=== PATIENT | male | born 1965 | race African-American/Black ===

== ENCOUNTER 2017-04-13 09:35 | Emergency (ER) | payer OTHER ==
[~2017-04-13] VITALS: Ht 175.3 cm; Wt 85.0 kg
[~2017-04-13 09:35] MED LIST: ALBU8HFA IH; ALLO100T PO; ASPI-556 PO; CALC667C4 PO; CARI350T PO; FOLI1CAP2 PO; IPRA0.2S54 IH; OXYC10 PO; PANT40TA PO
[2017-04-13] MEDS ORDERED: HYDROCODONE/ACETAMINOPHEN 5-325 MG TABLET PO ONE (12:15)
[2017-04-13] MEDS ORDERED: POVIDONE-IODINE 10% 15 ML SOLUTION UD TP ONE (12:15)
[2017-04-13] MEDS ORDERED: LIDOCAINE HCL BUFFERED 1% 20 ML VIAL INJ ONE (12:15)
[2017-04-13 12:50] VITALS: BP 122/75
[2017-04-13] MEDS ORDERED: BACITRACIN 0.9 GM PACKET OINTMENT TP ONE (13:00)
== END 2017-04-13 13:20 | disposition home or self-care (01) ==
LOC: EMS 09:37
DX: S61.411A Laceration without foreign body of right hand, initial encounter (principal); S89.91XA Unspecified injury of right lower leg, initial encounter; I11.0 Hypertensive heart disease with heart failure; I50.9 Heart failure, unspecified; J44.9 Chronic obstructive pulmonary disease, unspecified; J45.909 Unspecified asthma, uncomplicated; F14.90 Cocaine use, unspecified, uncomplicated; F12.90 Cannabis use, unspecified, uncomplicated; F17.210 Nicotine dependence, cigarettes, uncomplicated; Z88.8 Allergy status to other drugs, medicaments and biological substances; W26.0XXA Contact with knife, initial encounter; Y93.89 Activity, other specified; Y92.89 Other specified places as the place of occurrence of the external cause; Y99.8 Other external cause status
CPT/HCPCS: 12004; 72170; 73130; 73562; 99284; J3490

== ENCOUNTER 2017-04-14 17:15 | Emergency (ER) | payer OTHER ==
[~2017-04-14] VITALS: Ht 175.3 cm; Wt 84.7 kg
[2017-04-14] MEDS ORDERED: HYDROCODONE/ACETAMINOPHEN 5-325 MG TABLET PO ONE (18:15)
[2017-04-14 19:01] VITALS: BP 138/83
== END 2017-04-14 19:09 | disposition home or self-care (01) ==
LOC: EMS 17:17
DX: S61.212D Laceration without foreign body of right middle finger without damage to nail, subsequent encounter (principal); X58.XXXD Exposure to other specified factors, subsequent encounter; Z88.0 Allergy status to penicillin; Z79.82 Long term (current) use of aspirin; J45.909 Unspecified asthma, uncomplicated; J44.9 Chronic obstructive pulmonary disease, unspecified; I12.9 Hypertensive chronic kidney disease with stage 1 through stage 4 chronic kidney disease, or unspecified chronic kidney disease; N28.9 Disorder of kidney and ureter, unspecified; Z99.2 Dependence on renal dialysis; B19.20 Unspecified viral hepatitis C without hepatic coma; F17.210 Nicotine dependence, cigarettes, uncomplicated; F14.90 Cocaine use, unspecified, uncomplicated; F12.90 Cannabis use, unspecified, uncomplicated
CPT/HCPCS: 99283

== ENCOUNTER 2017-06-12 09:53 | Emergency (ER) | payer OTHER ==
[~2017-06-12] VITALS: Ht 175.3 cm; Wt 84.0 kg
[2017-06-12 11:42] VITALS: BP 136/84
== END 2017-06-12 12:11 | disposition home or self-care (01) ==
LOC: EMS 09:55
DX: S50.362A Insect bite (nonvenomous) of left elbow, initial encounter (principal); S80.862A Insect bite (nonvenomous), left lower leg, initial encounter; S20.162A Insect bite (nonvenomous) of breast, left breast, initial encounter; L03.116 Cellulitis of left lower limb; L03.114 Cellulitis of left upper limb; I11.0 Hypertensive heart disease with heart failure; I50.9 Heart failure, unspecified; J44.9 Chronic obstructive pulmonary disease, unspecified; F17.210 Nicotine dependence, cigarettes, uncomplicated; F12.90 Cannabis use, unspecified, uncomplicated; F14.90 Cocaine use, unspecified, uncomplicated; Z88.8 Allergy status to other drugs, medicaments and biological substances; W57.XXXA Bitten or stung by nonvenomous insect and other nonvenomous arthropods, initial encounter; Y93.89 Activity, other specified; Y92.098 Other place in other non-institutional residence as the place of occurrence of the external cause; Y99.8 Other external cause status
CPT/HCPCS: 71020; 99284

== ENCOUNTER 2017-08-17 01:53 | Emergency (ER) | payer OTHER ==
[~2017-08-17] VITALS: Ht 180.3 cm; Wt 81.8 kg
[2017-08-17 02:29] LABS: BASOPHILS % (AUTO) 0.3 % (0.0-2.0); EOSINOPHILS % (AUTO) 1.2 % (1.0-6.0); HEMATOCRIT 37.1 % (41-53); HEMOGLOBIN 12.4 g/dL (13.5-17.5); LYMPHOCYTES % (AUTO) 19.6 % (22.0-44.0); MEAN CORPUSCULAR HEMOGLOBIN 35.3 pg (26.0-34.0); MEAN CORPUSCULAR HGB CONC 33.4 G/dL (31.0-37.0); MEAN CORPUSCULAR VOLUME 106 fL (80-100); MONOCYTES # (AUTO) 0.5 K/uL (0.1-1.0); MONOCYTES % (AUTO) 9.1 % (2.0-9.0); NEUTROPHILS # (AUTO) 3.6 K/uL (1.8-7.7); NEUTROPHILS % (AUTO) 69.8 % (40.0-70.0); RED CELL DISTRIBUTION WIDTH 13.9 % (11.5-14.5); WHITE BLOOD COUNT (AUTO) 5.1 K/uL (4.5-11.0)
[2017-08-17 02:48] LABS: CALCIUM, TOTAL 9.3 mg/dL (8.8-10.5); CREATININE 11.89 mg/dL (0.60-1.30); POTASSIUM 5.3 mmol/L (3.5-5.1)
[2017-08-17 02:57] LABS: ALBUMIN 3.9 g/dL (3.4-5.0); BILIRUBIN,TOTAL 1.2 mg/dL (0.1-1.0); TOTAL PROTEIN, SERUM 8.4 g/dL (6.4-8.2)
[2017-08-17 03:00] LABS: PLATELET COUNT (AUTO) 104 K/uL (150-450)
[2017-08-17 03:01] LABS: RBC MORPHOLOGY COMMENT ABNORMAL RBC MORPH
[2017-08-17 04:05] VITALS: BP 110/71
[2017-08-17] MEDS ORDERED: IPRATROPIUM BROMIDE 0.5 MG/2.5 ML NEB SOLUTION NEB ONE (04:45)
[2017-08-17] MEDS ORDERED: ALBUTEROL SULFATE 5 MG/ML 20 ML NEB SOLN [BULK] NEB ONE (04:45)
[2017-08-17] MEDS ORDERED: PROMETHAZINE HCL/CODEINE 6.25-10MG/5ML SYRUP UDCUP PO ONE (04:45)
== END 2017-08-17 05:02 | disposition left against medical advice (07) ==
LOC: EMS 01:54
DX: J44.9 Chronic obstructive pulmonary disease, unspecified (principal); I13.2 Hypertensive heart and chronic kidney disease with heart failure and with stage 5 chronic kidney disease, or end stage renal disease; N18.6 End stage renal disease; I50.9 Heart failure, unspecified; J45.909 Unspecified asthma, uncomplicated; F17.210 Nicotine dependence, cigarettes, uncomplicated; F12.90 Cannabis use, unspecified, uncomplicated; F14.90 Cocaine use, unspecified, uncomplicated; Z99.2 Dependence on renal dialysis; Z88.8 Allergy status to other drugs, medicaments and biological substances; Z79.82 Long term (current) use of aspirin
CPT/HCPCS: 93005; 99285

== ENCOUNTER 2018-04-02 14:09 | Emergency (ER) | payer OTHER ==
[~2018-04-02] VITALS: Ht 177.8 cm; Wt 72.7 kg
[2018-04-02] MEDS ORDERED: OXYC10IR PO (15:25)
[2018-04-02] MEDS ORDERED: KETOROLAC TROMETHAMINE 30 MG/ML VIAL IM ONE ×2 (15:30→15:45)
[2018-04-02] MEDS ORDERED: KETOROLAC TROMETHAMINE 60 MG/2 ML VIAL IM ONE (15:30)
[2018-04-02] MEDS ORDERED: ALBUTEROL SULFATE HFA 90 MCG/PUFF 8 GM INHALER IH ONE (15:30)
[2018-04-02 17:15] VITALS: BP 129/76
== END 2018-04-02 17:31 | disposition home or self-care (01) ==
LOC: EMS 14:12
DX: M79.672 Pain in left foot (principal); I13.2 Hypertensive heart and chronic kidney disease with heart failure and with stage 5 chronic kidney disease, or end stage renal disease; N18.6 End stage renal disease; I50.9 Heart failure, unspecified; J45.909 Unspecified asthma, uncomplicated; J44.9 Chronic obstructive pulmonary disease, unspecified; F17.210 Nicotine dependence, cigarettes, uncomplicated; F12.90 Cannabis use, unspecified, uncomplicated; F14.90 Cocaine use, unspecified, uncomplicated; Z99.2 Dependence on renal dialysis; Z88.8 Allergy status to other drugs, medicaments and biological substances
CPT/HCPCS: 73630; 94640; 96372; 99284; 99406; J1885; J3535

== ENCOUNTER 2019-01-20 12:01 | Inpatient (IN) | payer MEDICAID, OTHER ==
[~2019-01-20] VITALS: Ht 175.3 cm; Wt 75.0 kg
[~2019-01-20 12:01] MED LIST changes: +LIDOCAINE/PF 2% 5 ML VIAL INJ ONE; +MANNITOL 25%-12.5 GM/50 ML VIAL IVP ONE; -OXYC10 PO; +OXYC10IR PO
[2019-01-20] MEDS ORDERED: MethylPREDNISolone SOD SUCC 125 MG/2 ML VIAL IVP ONE (12:45)
[2019-01-20] MEDS ORDERED: LOPERAMIDE HCL 2 MG CAPSULE PO ONE (12:45)
[2019-01-20] MEDS ORDERED: SODIUM CHLORIDE 0.9% 500 ML IV ONE (12:45)
[2019-01-20] MEDS ORDERED: ALBUTEROL SULFATE 5 MG/ML 20 ML NEB SOLN [BULK] NEB ONE (12:45)
[2019-01-20] MEDS ORDERED: IPRATROPIUM BROMIDE 0.5 MG/2.5 ML NEB SOLUTION NEB ONE (12:45)
[2019-01-20] MEDS ORDERED: IBUPROFEN 600 MG TABLET PO ONE (12:45)
[2019-01-20 12:52] LABS: BASOPHILS % (AUTO) 0.4 % (0.0-2.0); EOSINOPHILS % (AUTO) 0.2 % (1.0-6.0); HEMATOCRIT 43.6 % (41-53); HEMOGLOBIN 14.6 g/dL (13.5-17.5); LYMPHOCYTES # (AUTO) 0.5 K/uL (1.0-4.8); LYMPHOCYTES % (AUTO) 10.2 % (22.0-44.0); MEAN CORPUSCULAR HEMOGLOBIN 35.1 pg (26.0-34.0); MEAN CORPUSCULAR HGB CONC 33.4 G/dL (31.0-37.0); MEAN CORPUSCULAR VOLUME 105 fL (80-100); MONOCYTES # (AUTO) 0.7 K/uL (0.1-1.0); MONOCYTES % (AUTO) 12.9 % (2.0-9.0); NEUTROPHILS % (AUTO) 76.3 % (40.0-70.0); RED BLOOD CELL COUNT(AUTO) 4.15 MIL/uL (4.50-5.90); RED CELL DISTRIBUTION WIDTH 14.4 % (11.5-14.5)
[2019-01-20 13:10] LABS: ALBUMIN 3.4 g/dL (3.4-5.0); BILIRUBIN,TOTAL 1.5 mg/dL (0.1-1.0); CALCIUM, TOTAL 9.2 mg/dL (8.8-10.5); CREATININE 12.41 mg/dL (0.60-1.30); TOTAL PROTEIN, SERUM 8.2 g/dL (6.4-8.2)
[2019-01-20 13:20] LABS: POTASSIUM 6.3 mmol/L (3.5-5.1)
[2019-01-20 13:22] LABS: PLATELET COUNT (AUTO) 97 K/uL (150-450)
[2019-01-20] MEDS ORDERED: DEXTROSE 50%-WATER 25 GM/50 ML SYRINGE IVP ONE (13:30)
[2019-01-20] MEDS ORDERED: OSELTAMIVIR PHOSPHATE 75 MG CAPSULE PO ONE (13:30)
[2019-01-20] MEDS ORDERED: CALCIUM GLUCONATE 100 MG/ML 10 ML IVP ONE (13:30)
[2019-01-20] MEDS ORDERED: SODIUM BICARBONATE [ADULT] 8.4% 50 MEQ/50 ML SYRINGE IVP ONE (13:30)
[2019-01-20] MEDS ORDERED: SODIUM POLYSTYRENE SULFONATE 15 GM/60 ML SUSPENSION BOTTLE PO ONE (13:30)
[2019-01-20] MEDS ORDERED: INSULIN REGULAR, HUMAN 100 UNITS/ML IVP ONE (13:30)
[2019-01-20] MEDS ORDERED: ACETAMINOPHEN 325 MG TABLET PO PRN ×2 (13:45→17:45)
[2019-01-20] MEDS ORDERED: ONDANSETRON HCL 4 MG/2 ML VIAL IVP PRN ×2 (13:45→17:45)
[2019-01-20 14:38] LABS: INFLUENZA TYPE A POSITIVE FOR TYPE A (NEGATIVE); INFLUENZA TYPE B NEGATIVE FOR TYPE B (NEGATIVE)
[2019-01-20 14:45] VITALS: BP 110/63
[2019-01-20] MEDS: IPRATROPIUM BROMIDE 0.5 MG/2.5 ML NEB SOLUTION NEB SCH ×5 (15:00→19:59)
[2019-01-20] MEDS: ALBUTEROL SULFATE 2.5 MG/0.5 ML NEB SOLUTION NEB SCH ×5 (15:00→19:59)
[2019-01-20] MEDS ORDERED: SODIUM CHLORIDE 0.9% 2,000 ML IV ONE (17:21)
[2019-01-20] MEDS ORDERED: ZOLPIDEM TARTRATE 5 MG TABLET PO PRN (17:45)
[2019-01-20] MEDS ORDERED: BISACODYL 10 MG RECTAL RECTAL SUPPOSITORY PR PRN (17:45)
[2019-01-20] MEDS ORDERED: MORPHINE SULFATE 2 MG/ML SYRINGE IVP PRN (17:45)
[2019-01-20] MEDS ORDERED: IPRATROPIUM BROMIDE 0.5 MG/2.5 ML NEB SOLUTION NEB PRN (17:45)
[2019-01-20] MEDS ORDERED: ALBUTEROL SULFATE 2.5 MG/0.5 ML NEB SOLUTION NEB PRN (17:45)
[2019-01-20] MEDS ORDERED: MAGNESIUM HYDROXIDE SUSPENSION 30 ML UDCUP PO PRN (17:45)
[2019-01-20] MEDS: MethylPREDNISolone SOD SUCC 125 MG/2 ML VIAL IVP SCH (18:00)
[2019-01-20] MEDS: CALCIUM ACETATE 667 MG CAPSULE PO SCH (18:02)
[2019-01-20] MEDS: HYDROCODONE/ACETAMINOPHEN 5-325 MG TABLET PO PRN ×2 (18:05→22:46)
[2019-01-20] MEDS ORDERED: MANNITOL 25%-12.5 GM/50 ML VIAL IVP PRN (19:15)
[2019-01-20] MEDS ORDERED: LIDOCAINE/PF 1% 2 ML VIAL ID PRN (19:15)
[2019-01-20] MEDS ORDERED: SODIUM CHLORIDE 0.9% 250 ML IV ONE (20:48)
[2019-01-20] MEDS: DOCUSATE SODIUM 100 MG CAPSULE PO SCH ×2 (21:00→22:23)
[2019-01-20] MEDS: GuaiFENesin SR 600 MG ER TABLET PO SCH (22:23)
[2019-01-20] MEDS: BENZONATATE 100 MG CAPSULE PO SCH (22:26)
[2019-01-20] MEDS: CefTRIAXone 1 GM/DEXTROSE 50 ML IV SCH (22:26)
[2019-01-20] MEDS: OSELTAMIVIR PHOSPHATE 75 MG CAPSULE PO SCH (22:26)
[2019-01-20] MEDS: AZITHROMYCIN 500 MG/NS 250 ML IV SCH (23:37)
[2019-01-20] MEDS: HEPARIN SODIUM,PORCINE 5,000 UNITS/ML VIAL SQ SCH (23:37)
[2019-01-21 00:18] VITALS: BP 112/65
[2019-01-21] MEDS: IPRATROPIUM BROMIDE 0.5 MG/2.5 ML NEB SOLUTION NEB SCH ×4 (02:41→21:38)
[2019-01-21] MEDS: ALBUTEROL SULFATE 2.5 MG/0.5 ML NEB SOLUTION NEB SCH ×4 (02:41→21:38)
[2019-01-21 04:40] VITALS: BP 99/63
[2019-01-21] MEDS ORDERED: MANNITOL 25%-12.5 GM/50 ML VIAL IVP PRN (06:00)
[2019-01-21] MEDS: MethylPREDNISolone SOD SUCC 125 MG/2 ML VIAL IVP SCH ×4 (06:00→17:20)
[2019-01-21] MEDS ORDERED: LIDOCAINE/PF 1% 2 ML VIAL ID PRN (06:00)
[2019-01-21 06:59] LABS: BASOPHILS % (AUTO) 0.2 % (0.0-2.0); EOSINOPHILS % (AUTO) 0 % (1.0-6.0); HEMATOCRIT 38.6 % (41-53); LYMPHOCYTES # (AUTO) 0.3 K/uL (1.0-4.8); MEAN CORPUSCULAR HEMOGLOBIN 35.1 pg (26.0-34.0); MEAN CORPUSCULAR HGB CONC 33.6 G/dL (31.0-37.0); MEAN CORPUSCULAR VOLUME 105 fL (80-100); MONOCYTES # (AUTO) 0.4 K/uL (0.1-1.0); MONOCYTES % (AUTO) 7.2 % (2.0-9.0); PLATELET COUNT (AUTO) 82 K/uL (150-450); RED BLOOD CELL COUNT(AUTO) 3.69 MIL/uL (4.50-5.90)
[2019-01-21 07:05] LABS: CALCIUM, TOTAL 8.7 mg/dL (8.8-10.5); CREATININE 7.68 mg/dL (0.60-1.30); MAGNESIUM 2.1 mg/dL (1.80-2.40); NEUTROPHILS % (AUTO) 87.6 % (40.0-70.0); PHOSPHORUS 6.6 mg/dL (2.5-4.9)
[2019-01-21 07:42] VITALS: BP 110/74
[2019-01-21] MEDS: HEPARIN SODIUM,PORCINE 5,000 UNITS/ML VIAL SQ SCH (08:00)
[2019-01-21] MEDS ORDERED: SODIUM CHLORIDE 0.9% 2,000 ML IV ONE (08:16)
[2019-01-21] MEDS: ASPIRIN 81 MG EC TABLET PO SCH (08:20)
[2019-01-21] MEDS: DOCUSATE SODIUM 100 MG CAPSULE PO SCH ×2 (08:20→21:06)
[2019-01-21] MEDS: PANTOPRAZOLE SODIUM 40 MG DR TABLET PO SCH (08:20)
[2019-01-21] MEDS: GuaiFENesin SR 600 MG ER TABLET PO SCH ×2 (08:20→21:01)
[2019-01-21] MEDS: CALCIUM ACETATE 667 MG CAPSULE PO SCH ×3 (08:20→18:09)
[2019-01-21] MEDS: OSELTAMIVIR PHOSPHATE 75 MG CAPSULE PO SCH ×2 (08:21→21:01)
[2019-01-21] MEDS: ALLOPURINOL 100 MG TABLET PO SCH (08:21)
[2019-01-21] MEDS: BENZONATATE 100 MG CAPSULE PO SCH ×3 (08:21→21:01)
[2019-01-21] MEDS: HYDROCODONE/ACETAMINOPHEN 5-325 MG TABLET PO PRN ×2 (08:28→21:06)
[2019-01-21 11:04] VITALS: BP 119/79
[2019-01-21] MEDS: VITAMIN B COMP/VIT C/FOLIC ACID CAPSULE PO SCH (12:24)
[2019-01-21 15:12] VITALS: BP 112/72
[2019-01-21 19:52] VITALS: BP 111/77
[2019-01-21] MEDS: CefTRIAXone 1 GM/DEXTROSE 50 ML IV SCH (21:02)
[2019-01-21] MEDS: AZITHROMYCIN 500 MG/NS 250 ML IV SCH (22:06)
[2019-01-22 00:12] VITALS: BP 98/71
[2019-01-22] MEDS: IPRATROPIUM BROMIDE 0.5 MG/2.5 ML NEB SOLUTION NEB SCH ×3 (01:59→14:59)
[2019-01-22] MEDS: ALBUTEROL SULFATE 2.5 MG/0.5 ML NEB SOLUTION NEB SCH ×3 (02:00→14:59)
[2019-01-22 04:27] VITALS: BP 118/74
[2019-01-22] MEDS: MethylPREDNISolone SOD SUCC 125 MG/2 ML VIAL IVP SCH ×3 (06:00→12:00)
[2019-01-22 07:09] VITALS: BP 119/51
[2019-01-22 07:30] VITALS: BP 111/77
[2019-01-22] MEDS: BENZONATATE 100 MG CAPSULE PO SCH ×2 (08:39→16:24)
[2019-01-22] MEDS: DOCUSATE SODIUM 100 MG CAPSULE PO SCH (08:40)
[2019-01-22] MEDS: CALCIUM ACETATE 667 MG CAPSULE PO SCH ×2 (08:40→13:46)
[2019-01-22] MEDS: GuaiFENesin SR 600 MG ER TABLET PO SCH (08:40)
[2019-01-22] MEDS: ASPIRIN 81 MG EC TABLET PO SCH (08:40)
[2019-01-22] MEDS: ALLOPURINOL 100 MG TABLET PO SCH (08:41)
[2019-01-22] MEDS: VITAMIN B COMP/VIT C/FOLIC ACID CAPSULE PO SCH (08:41)
[2019-01-22] MEDS: PANTOPRAZOLE SODIUM 40 MG DR TABLET PO SCH (08:41)
[2019-01-22] MEDS: OSELTAMIVIR PHOSPHATE 75 MG CAPSULE PO SCH (08:41)
[2019-01-22] MEDS: HYDROCODONE/ACETAMINOPHEN 5-325 MG TABLET PO PRN ×2 (08:46→16:25)
[2019-01-22 11:15] VITALS: BP 115/76
[2019-01-22] MEDS ORDERED: OxyCODONE HCL 10 MG IR TABLET PO PRN (13:00)
[2019-01-22 15:40] VITALS: BP 134/75
[2019-01-22] MEDS ORDERED: AZIT250T9 PO (16:58)
[2019-01-22] MEDS ORDERED: BENZ-51 PO (16:59)
[2019-01-22] MEDS ORDERED: OSEL75 PO (17:01)
[2019-01-22] MEDS ORDERED: PRED20 PO ×2 (17:03→17:05)
[2019-01-22] MEDS ORDERED: PRED10 PO (17:06)
== END 2019-01-22 17:20 | disposition home or self-care (01) | DRG 194 ==
LOC: EMS 12:03 → 5S 13:48
PROVIDERS: ADMIT Internal Medicine; ATTEND Internal Medicine
PROC: 5A1D70Z Performance of Urinary Filtration, Intermittent, Less than 6 Hours Per Day (ICD-10-PCS; principal; 2019-01-20)
PROC: 5A1D70Z Performance of Urinary Filtration, Intermittent, Less than 6 Hours Per Day (ICD-10-PCS; 2019-01-21)
DX: I13.2 Hypertensive heart and chronic kidney disease with heart failure and with stage 5 chronic kidney disease, or end stage renal disease (principal); J96.00 Acute respiratory failure, unspecified whether with hypoxia or hypercapnia; J10.00 Influenza due to other identified influenza virus with unspecified type of pneumonia; E11.22 Type 2 diabetes mellitus with diabetic chronic kidney disease; J44.0 Chronic obstructive pulmonary disease with (acute) lower respiratory infection; N18.6 End stage renal disease; J45.901 Unspecified asthma with (acute) exacerbation; E87.5 Hyperkalemia; I42.9 Cardiomyopathy, unspecified; I50.31 Acute diastolic (congestive) heart failure; Z99.2 Dependence on renal dialysis; E55.9 Vitamin D deficiency, unspecified; E87.6 Hypokalemia; I34.0 Nonrheumatic mitral (valve) insufficiency; J44.1 Chronic obstructive pulmonary disease with (acute) exacerbation; N26.9 Renal sclerosis, unspecified; Z79.82 Long term (current) use of aspirin; Z79.899 Other long term (current) drug therapy; Z87.891 Personal history of nicotine dependence
CPT/HCPCS: 83036; 83735; 84100; 86704; 86706; 87081; 87340; 87804; 93005; 94640; 94644; 96374; 96375; 99291; G0378; J0456; J0610; J0696; J1644; J1815; J2150; J2405; J2930; J3490; J7030; J7040; J7050

== ENCOUNTER 2019-03-02 02:35 | Emergency (ER) | payer OTHER ==
[~2019-03-02] VITALS: Ht 177.8 cm; Wt 80.5 kg
[~2019-03-02 02:35] MED LIST changes: +AZIT250T9 PO; +BENZ-51 PO; -LIDOCAINE/PF 2% 5 ML VIAL INJ ONE; -MANNITOL 25%-12.5 GM/50 ML VIAL IVP ONE; +OSEL75 PO; +PRED10 PO; +PRED20 PO
[2019-03-02] MEDS ORDERED: CARISOPRODOL 350 MG TABLET PO ONE (03:30)
[2019-03-02] MEDS ORDERED: HYDROCODONE/ACETAMINOPHEN 5-325 MG TABLET PO ONE (03:30)
[2019-03-02] MEDS ORDERED: KETOROLAC TROMETHAMINE 60 MG/2 ML VIAL IM ONE (03:45)
[2019-03-02] MEDS ORDERED: KETOROLAC TROMETHAMINE 30 MG/ML VIAL IM ONE (04:00)
[2019-03-02 04:24] VITALS: BP 110/72
== END 2019-03-02 04:30 | disposition home or self-care (01) ==
LOC: EMS 02:39
DX: M16.0 Bilateral primary osteoarthritis of hip (principal); I11.0 Hypertensive heart disease with heart failure; I50.9 Heart failure, unspecified; J44.9 Chronic obstructive pulmonary disease, unspecified; F12.90 Cannabis use, unspecified, uncomplicated; F14.90 Cocaine use, unspecified, uncomplicated; F17.210 Nicotine dependence, cigarettes, uncomplicated; Z79.899 Other long term (current) drug therapy; Z88.8 Allergy status to other drugs, medicaments and biological substances; Z79.82 Long term (current) use of aspirin; W18.39XA Other fall on same level, initial encounter; Y93.89 Activity, other specified; Y92.89 Other specified places as the place of occurrence of the external cause; Y99.8 Other external cause status
CPT/HCPCS: 73503; 96372; 99283; J1885

== ENCOUNTER 2019-05-24 11:36 | Emergency (ER) | payer OTHER ==
[~2019-05-24] VITALS: Ht 175.3 cm; Wt 76.0 kg
[2019-05-24] MEDS ORDERED: SEVE800 PO (12:15)
[2019-05-24] MEDS ORDERED: FOLI1CAP16 PO (12:15)
[2019-05-24] MEDS ORDERED: HYDR25TA84 PO (12:15)
[2019-05-24] MEDS ORDERED: GABA-529 PO (12:15)
[2019-05-24] MEDS ORDERED: CARV6 PO (12:15)
[2019-05-24] MEDS ORDERED: LOSA25TA41 PO (12:15)
[2019-05-24] MEDS ORDERED: FURO40I IM (12:15)
[2019-05-24] MEDS ORDERED: OXYC10IR PO (12:15)
[2019-05-24 13:15] LABS: BASOPHILS % (AUTO) 0.7 % (0.0-2.0); EOSINOPHILS % (AUTO) 1.6 % (1.0-6.0); HEMATOCRIT 49.3 % (41-53); HEMOGLOBIN 16.1 g/dL (13.5-17.5); LYMPHOCYTES # (AUTO) 1.1 K/uL (1.0-4.8); LYMPHOCYTES % (AUTO) 23.6 % (22.0-44.0); MEAN CORPUSCULAR HEMOGLOBIN 35.3 pg (26.0-34.0); MEAN CORPUSCULAR HGB CONC 32.8 G/dL (31.0-37.0); MEAN CORPUSCULAR VOLUME 108 fL (80-100); MONOCYTES # (AUTO) 0.4 K/uL (0.1-1.0); MONOCYTES % (AUTO) 9.3 % (2.0-9.0); NEUTROPHILS % (AUTO) 64.8 % (40.0-70.0); PLATELET COUNT (AUTO) 109 K/uL (150-450); RED BLOOD CELL COUNT(AUTO) 4.57 MIL/uL (4.50-5.90); RED CELL DISTRIBUTION WIDTH 14.5 % (11.5-14.5)
[2019-05-24 13:21] LABS: CALCIUM, TOTAL 7.9 mg/dL (8.8-10.5); CREATININE 7.02 mg/dL (0.60-1.30); POTASSIUM 4.1 mmol/L (3.5-5.1)
[2019-05-24 13:26] LABS: ALBUMIN 3.4 g/dL (3.4-5.0); BILIRUBIN,TOTAL 0.9 mg/dL (0.1-1.0); TOTAL PROTEIN, SERUM 7.9 g/dL (6.4-8.2)
[2019-05-24 15:01] VITALS: BP 131/86
== END 2019-05-24 15:01 | disposition home or self-care (01) ==
LOC: EMS 11:38
DX: K62.5 Hemorrhage of anus and rectum (principal); K59.00 Constipation, unspecified; I13.2 Hypertensive heart and chronic kidney disease with heart failure and with stage 5 chronic kidney disease, or end stage renal disease; N18.6 End stage renal disease; I50.9 Heart failure, unspecified; J45.909 Unspecified asthma, uncomplicated; F17.210 Nicotine dependence, cigarettes, uncomplicated; F12.90 Cannabis use, unspecified, uncomplicated; F14.90 Cocaine use, unspecified, uncomplicated; Z99.2 Dependence on renal dialysis; Z79.82 Long term (current) use of aspirin; Z79.899 Other long term (current) drug therapy; Z88.8 Allergy status to other drugs, medicaments and biological substances
CPT/HCPCS: 93005

== ENCOUNTER 2019-08-01 20:14 | Emergency (ER) | payer OTHER ==
[~2019-08-01] VITALS: Ht 175.3 cm; Wt 82.7 kg
[~2019-08-01 20:14] MED LIST changes: -ALLO100T PO; -AZIT250T9 PO; -BENZ-51 PO; +CARV6.2579 PO; +FOLI1CAP16 PO; -FOLI1CAP2 PO; -IPRA0.2S54 IH; +LOSA25TA2 PO; -OSEL75 PO; -OXYC10IR PO; -PRED10 PO; -PRED20 PO; +SEVE800 PO
[2019-08-01] MEDS ORDERED: ALLO100T PO (20:47)
[2019-08-01] MEDS ORDERED: ACETAMINOPHEN 500 MG TABLET PO ONE (22:00)
[2019-08-01] MEDS ORDERED: LIDOCAINE 5% TRANSDERMAL PATCH TD ONE (22:00)
[2019-08-02 00:46] VITALS: BP 141/80
== END 2019-08-02 00:50 | disposition home or self-care (01) ==
LOC: EMS 20:16
DX: S76.011A Strain of muscle, fascia and tendon of right hip, initial encounter (principal); M70.61 Trochanteric bursitis, right hip; J45.909 Unspecified asthma, uncomplicated; I11.0 Hypertensive heart disease with heart failure; I50.9 Heart failure, unspecified; F17.210 Nicotine dependence, cigarettes, uncomplicated; Z79.82 Long term (current) use of aspirin; Z88.8 Allergy status to other drugs, medicaments and biological substances; X58.XXXA Exposure to other specified factors, initial encounter; Y93.89 Activity, other specified; Y92.89 Other specified places as the place of occurrence of the external cause; Y99.8 Other external cause status
CPT/HCPCS: 73502; 99406

== ENCOUNTER 2019-08-30 09:28 | Emergency (ER) | payer OTHER ==
[~2019-08-30] VITALS: Ht 175.3 cm; Wt 81.8 kg
[~2019-08-30 09:28] MED LIST changes: +ALLO100T PO
[2019-08-30] MEDS ORDERED: LIDOCAINE 1%/EPI 1:200,000/PF 10 ML VIAL INJ ONE (10:15)
[2019-08-30] MEDS ORDERED: CEPHALEXIN MONOHYDRATE 500 MG CAPSULE PO ONE (10:15)
[2019-08-30] MEDS ORDERED: SULFAMETHOX/TRIMETH DS 800-160 MG/TABLET PO ONE (10:15)
[2019-08-30 12:32] VITALS: BP 130/78
== END 2019-08-30 12:34 | disposition home or self-care (01) ==
LOC: EMS 09:30
DX: L02.31 Cutaneous abscess of buttock (principal); G93.49 Other encephalopathy; I11.0 Hypertensive heart disease with heart failure; I50.9 Heart failure, unspecified; J44.9 Chronic obstructive pulmonary disease, unspecified; F12.90 Cannabis use, unspecified, uncomplicated; F17.210 Nicotine dependence, cigarettes, uncomplicated; Z99.2 Dependence on renal dialysis; Z86.19 Personal history of other infectious and parasitic diseases; Z98.890 Other specified postprocedural states; Z88.8 Allergy status to other drugs, medicaments and biological substances
CPT/HCPCS: 10060; 73630; 99284; J3490; 29515

== ENCOUNTER 2019-11-16 12:12 | Inpatient (IN) | payer OTHER ==
[~2019-11-16] VITALS: Ht 175.3 cm; Wt 79.9 kg
[~2019-11-16 12:12] MED LIST changes: -ASPI-556 PO; -CALC667C4 PO; -CARV6.2579 PO; +CEPH500 PO; -LOSA25TA2 PO; +PHOSLOC PO
[2019-11-16] MEDS ORDERED: LOPERAMIDE HCL 2 MG CAPSULE PO ONE (14:45)
[2019-11-16] MEDS ORDERED: ONDANSETRON HCL 4 MG TABLET PO ONE (14:45)
[2019-11-16] MEDS ORDERED: ACETAMINOPHEN 500 MG TABLET PO ONE (14:45)
[2019-11-16 16:00] LABS: BASOPHILS % (AUTO) 0.7 % (0.0-2.0); EOSINOPHILS % (AUTO) 0.5 % (1.0-6.0); HEMATOCRIT 33.8 % (41-53); HEMOGLOBIN 11.4 g/dL (13.5-17.5); LYMPHOCYTES # (AUTO) 0.5 K/uL (1.0-4.8); LYMPHOCYTES % (AUTO) 8.9 % (22.0-44.0); MEAN CORPUSCULAR HEMOGLOBIN 34.6 pg (26.0-34.0); MEAN CORPUSCULAR HGB CONC 33.6 G/dL (31.0-37.0); MEAN CORPUSCULAR VOLUME 103 fL (80-100); MONOCYTES # (AUTO) 0.7 K/uL (0.1-1.0); NEUTROPHILS # (AUTO) 4.1 K/uL (1.8-7.7); NEUTROPHILS % (AUTO) 76.9 % (40.0-70.0); PLATELET COUNT (AUTO) 134 K/uL (150-450); RED BLOOD CELL COUNT(AUTO) 3.28 MIL/uL (4.50-5.90); RED CELL DISTRIBUTION WIDTH 14.2 % (11.5-14.5)
[2019-11-16 16:27] LABS: ALBUMIN 3.6 g/dL (3.4-5.0); BILIRUBIN,TOTAL 1.7 mg/dL (0.1-1.0); CALCIUM, TOTAL 8.4 mg/dL (8.8-10.5); CREATININE 9.15 mg/dL (0.60-1.30)
[2019-11-16 16:35] LABS: PLATELET MORPHOLOGY COMMENT GIANT PLTS PRESENT; POTASSIUM 6.8 mmol/L (3.5-5.1)
[2019-11-16] MEDS ORDERED: CALCIUM GLUCONATE 100 MG/ML 10 ML IVP ONE (16:45)
[2019-11-16] MEDS ORDERED: INSULIN REGULAR, HUMAN 100 UNITS/ML IVP ONE (16:45)
[2019-11-16] MEDS ORDERED: SODIUM BICARBONATE [ADULT] 8.4% 50 MEQ/50 ML SYRINGE IVP ONE (16:45)
[2019-11-16] MEDS ORDERED: SODIUM POLYSTYRENE SULFONATE 15 GM/60 ML SUSPENSION BOTTLE PO ONE (16:45)
[2019-11-16] MEDS ORDERED: DEXTROSE 50%-WATER 25 GM/50 ML SYRINGE IVP ONE (16:45)
[2019-11-16] MEDS ORDERED: ONDANSETRON HCL 4 MG/2 ML VIAL IVP PRN ×2 (17:00→21:45)
[2019-11-16] MEDS ORDERED: ACETAMINOPHEN 325 MG TABLET PO PRN ×2 (17:00→21:45)
[2019-11-16] MEDS: PANTOPRAZOLE SODIUM 40 MG/VIAL IVP SCH (17:33)
[2019-11-16] MEDS ORDERED: MORPHINE SULFATE 2 MG/ML SYRINGE IVP PRN (21:45)
[2019-11-16] MEDS ORDERED: MAGNESIUM HYDROXIDE SUSPENSION 30 ML UDCUP PO PRN (21:45)
[2019-11-16] MEDS ORDERED: ALBUTEROL SULFATE HFA 90 MCG/PUFF 8 GM INHALER IH PRN (21:45)
[2019-11-16] MEDS ORDERED: ZOLPIDEM TARTRATE 5 MG TABLET PO PRN (21:45)
[2019-11-16] MEDS ORDERED: BISACODYL 10 MG RECTAL RECTAL SUPPOSITORY PR PRN (21:45)
[2019-11-17] MEDS: HEPARIN SODIUM,PORCINE 5,000 UNITS/ML VIAL SQ SCH ×3 (01:16→17:28)
[2019-11-17 03:58] VITALS: BP 105/62
[2019-11-17 06:50] LABS: BASOPHILS % (AUTO) 0.7 % (0.0-2.0); EOSINOPHILS % (AUTO) 0.7 % (1.0-6.0); HEMATOCRIT 30.9 % (41-53); HEMOGLOBIN 10.6 g/dL (13.5-17.5); LYMPHOCYTES # (AUTO) 0.4 K/uL (1.0-4.8); LYMPHOCYTES % (AUTO) 6.4 % (22.0-44.0); MEAN CORPUSCULAR HGB CONC 34.1 G/dL (31.0-37.0); MEAN CORPUSCULAR VOLUME 103 fL (80-100); MONOCYTES # (AUTO) 0.7 K/uL (0.1-1.0); NEUTROPHILS # (AUTO) 4.8 K/uL (1.8-7.7); NEUTROPHILS % (AUTO) 81.2 % (40.0-70.0); PLATELET COUNT (AUTO) 132 K/uL (150-450); RED BLOOD CELL COUNT(AUTO) 3.01 MIL/uL (4.50-5.90); RED CELL DISTRIBUTION WIDTH 14.5 % (11.5-14.5)
[2019-11-17 07:18] LABS: ALBUMIN 3.1 g/dL (3.4-5.0); CALCIUM, TOTAL 8.1 mg/dL (8.8-10.5); CREATININE 6.63 mg/dL (0.60-1.30); MAGNESIUM 1.8 mg/dL (1.80-2.40); PHOSPHORUS 4.3 mg/dL (2.5-4.9); POTASSIUM 4.8 mmol/L (3.5-5.1); TOTAL PROTEIN, SERUM 7.8 g/dL (6.4-8.2)
[2019-11-17 07:34] LABS: BILIRUBIN,TOTAL 1.4 mg/dL (0.1-1.0)
[2019-11-17] MEDS: SEVELAMER CARBONATE 800 MG TABLET PO SCH ×3 (07:55→17:53)
[2019-11-17] MEDS: CALCIUM ACETATE 667 MG CAPSULE PO SCH ×3 (07:55→17:53)
[2019-11-17] MEDS: VITAMIN B COMP/VIT C/FOLIC ACID CAPSULE PO SCH (07:56)
[2019-11-17] MEDS: PANTOPRAZOLE SODIUM 40 MG/VIAL IVP SCH (07:57)
[2019-11-17] MEDS: DOCUSATE SODIUM 100 MG CAPSULE PO SCH ×2 (07:57→21:00)
[2019-11-17] MEDS: ALLOPURINOL 100 MG TABLET PO SCH (07:58)
[2019-11-17] MEDS: PANTOPRAZOLE SODIUM 40 MG DR TABLET PO SCH (07:58)
[2019-11-17] MEDS: CARISOPRODOL 350 MG TABLET PO SCH ×2 (07:59→21:37)
[2019-11-17 08:02] VITALS: BP 116/72
[2019-11-17] MEDS ORDERED: CARISOPRODOL 350 MG TABLET PO SCH (09:00)
[2019-11-17 11:30] VITALS: BP 105/63
[2019-11-17] MEDS ORDERED: IPRATROPIUM BROMIDE 0.5 MG/2.5 ML NEB SOLUTION NEB PRN (14:30)
[2019-11-17] MEDS ORDERED: *CLINICAL-LEVOFLOXACIN IVPB DOSING CLINICAL ONE (14:30)
[2019-11-17] MEDS ORDERED: ALBUTEROL SULFATE 2.5 MG/0.5 ML NEB SOLUTION NEB PRN (14:30)
[2019-11-17 14:59] VITALS: BP 107/65
[2019-11-17] MEDS ORDERED: LEVOFLOXACIN 750 MG/D5% WATER 150 ML IV ONE (15:00)
[2019-11-17] MEDS ORDERED: SODIUM CHLORIDE 0.9% 250 ML IV ONE (17:22)
[2019-11-17] MEDS: HYDROCODONE/ACETAMINOPHEN 5-325 MG TABLET PO PRN (17:29)
[2019-11-17 19:46] VITALS: BP 112/62
[2019-11-18] VITALS: BP 95/55
[2019-11-18] MEDS: HEPARIN SODIUM,PORCINE 5,000 UNITS/ML VIAL SQ SCH ×2 (00:25→08:00)
[2019-11-18] MEDS: HYDROCODONE/ACETAMINOPHEN 5-325 MG TABLET PO PRN ×2 (02:34→09:37)
[2019-11-18 04:08] VITALS: BP 110/65
[2019-11-18 07:06] LABS: CALCIUM, TOTAL 8.5 mg/dL (8.8-10.5); CREATININE 8.46 mg/dL (0.60-1.30); POTASSIUM 4.6 mmol/L (3.5-5.1)
[2019-11-18 07:37] VITALS: BP 112/66
[2019-11-18] MEDS: SEVELAMER CARBONATE 800 MG TABLET PO SCH ×2 (08:00→12:14)
[2019-11-18] MEDS: CALCIUM ACETATE 667 MG CAPSULE PO SCH ×2 (08:00→12:15)
[2019-11-18] MEDS: DOCUSATE SODIUM 100 MG CAPSULE PO SCH (09:00)
[2019-11-18] MEDS ORDERED: LEVO500 PO (10:01)
[2019-11-18] MEDS ORDERED: ALBU8HFA IH (10:01)
[2019-11-18] MEDS ORDERED: GUAIFDM PO (10:01)
[2019-11-18 11:05] VITALS: BP 113/97
[2019-11-18] MEDS: CARISOPRODOL 350 MG TABLET PO SCH (12:14)
[2019-11-18] MEDS: PANTOPRAZOLE SODIUM 40 MG/VIAL IVP SCH (12:14)
[2019-11-18] MEDS: ALLOPURINOL 100 MG TABLET PO SCH (12:15)
[2019-11-18] MEDS: PANTOPRAZOLE SODIUM 40 MG DR TABLET PO SCH (12:15)
[2019-11-18] MEDS: VITAMIN B COMP/VIT C/FOLIC ACID CAPSULE PO SCH (12:15)
[2019-11-18] MEDS ORDERED: LIDOCAINE/PF 1% 2 ML VIAL IV ONE (13:14)
[2019-11-19 08:40] LABS: GLUCOMETER DEV NAME(LOC) AHU.; GLUCOSE,POINT OF CARE 114 MG/DL (70-110)
[2019-11-19] MEDS ORDERED: LEVOFLOXACIN 500 MG/D5% WATER 100 ML IV SCH (13:00)
== END 2019-11-18 13:15 | disposition home or self-care (01) | DRG 194 ==
LOC: EMS 12:14 → AHU 11-17 00:28 → 5N 11-17 11:15
PROVIDERS: ADMIT Internal Medicine; ATTEND Internal Medicine
PROC: 5A1D70Z Performance of Urinary Filtration, Intermittent, Less than 6 Hours Per Day (ICD-10-PCS; principal; 2019-11-18)
DX: I13.2 Hypertensive heart and chronic kidney disease with heart failure and with stage 5 chronic kidney disease, or end stage renal disease (principal); J18.9 Pneumonia, unspecified organism; E11.22 Type 2 diabetes mellitus with diabetic chronic kidney disease; I42.9 Cardiomyopathy, unspecified; N18.6 End stage renal disease; E87.5 Hyperkalemia; J44.1 Chronic obstructive pulmonary disease with (acute) exacerbation; J44.0 Chronic obstructive pulmonary disease with (acute) lower respiratory infection; I50.31 Acute diastolic (congestive) heart failure; D64.9 Anemia, unspecified; M10.9 Gout, unspecified; B19.20 Unspecified viral hepatitis C without hepatic coma; F19.10 Other psychoactive substance abuse, uncomplicated; E55.9 Vitamin D deficiency, unspecified; E21.3 Hyperparathyroidism, unspecified; F17.210 Nicotine dependence, cigarettes, uncomplicated; F12.90 Cannabis use, unspecified, uncomplicated; E20.9 Hypoparathyroidism, unspecified; M19.90 Unspecified osteoarthritis, unspecified site; Z86.19 Personal history of other infectious and parasitic diseases; Z98.890 Other specified postprocedural states; Z79.899 Other long term (current) drug therapy; Z99.2 Dependence on renal dialysis; Z88.8 Allergy status to other drugs, medicaments and biological substances
CPT/HCPCS: 83735; 84100; 87081; 93005; 99291; C9113; J0610; J1644; J1815; J1956; J3490; J7050; Q0162

== ENCOUNTER 2019-12-23 19:35 | Inpatient (IN) | payer OTHER ==
[~2019-12-23] VITALS: Ht 175.3 cm; Wt 79.6 kg
[~2019-12-23 19:35] MED LIST changes: -CEPH500 PO; +GUAIFDM PO; +LEVO-72 PO
[2019-12-23 21:25] LABS: BASOPHILS % (AUTO) 0.6 % (0.0-2.0); EOSINOPHILS % (AUTO) 0.3 % (1.0-6.0); HEMOGLOBIN 11.1 g/dL (13.5-17.5); LYMPHOCYTES # (AUTO) 1.1 K/uL (1.0-4.8); LYMPHOCYTES % (AUTO) 16.2 % (22.0-44.0); MEAN CORPUSCULAR HEMOGLOBIN 35.1 pg (26.0-34.0); MEAN CORPUSCULAR HGB CONC 32.7 G/dL (31.0-37.0); MEAN CORPUSCULAR VOLUME 107 fL (80-100); MONOCYTES # (AUTO) 0.6 K/uL (0.1-1.0); MONOCYTES % (AUTO) 8.6 % (2.0-9.0); NEUTROPHILS # (AUTO) 5.2 K/uL (1.8-7.7); NEUTROPHILS % (AUTO) 74.3 % (40.0-70.0); PLATELET COUNT (AUTO) 102 K/uL (150-450); RED BLOOD CELL COUNT(AUTO) 3.17 MIL/uL (4.50-5.90); RED CELL DISTRIBUTION WIDTH 14.9 % (11.5-14.5)
[2019-12-23 21:36] LABS: CALCIUM, TOTAL 7.8 mg/dL (8.8-10.5); CREATININE 4.83 mg/dL (0.60-1.30); POTASSIUM 4.5 mmol/L (3.5-5.1)
[2019-12-23 21:37] LABS: INR 1.1 (0.9-1.1); PROTHROMBIN TIME 10.9 SEC (9.4-11.6)
[2019-12-23 22:01] LABS: ALBUMIN 3.4 g/dL (3.4-5.0); BILIRUBIN,TOTAL 0.9 mg/dL (0.1-1.0); TOTAL PROTEIN, SERUM 8.2 g/dL (6.4-8.2)
[2019-12-23] MEDS ORDERED: FUROSEMIDE 40 MG/4 ML VIAL IVP ONE (22:30)
[2019-12-23 23:15] LABS: INFLUENZA TYPE A NEGATIVE FOR TYPE A (NEGATIVE); INFLUENZA TYPE B NEGATIVE FOR TYPE B (NEGATIVE)
[2019-12-24] MEDS ORDERED: ONDANSETRON HCL 4 MG/2 ML VIAL IVP PRN (00:15)
[2019-12-24] MEDS ORDERED: 0.9% SODIUM CHLORIDE 10 ML SYRINGE IVP PRN (00:15)
[2019-12-24] MEDS ORDERED: ACETAMINOPHEN 325 MG TABLET PO PRN ×2 (00:15→10:45)
[2019-12-24 00:43] VITALS: BP 93/59
[2019-12-24 08:00] VITALS: BP 126/33
[2019-12-24] MEDS ORDERED: MAGNESIUM HYDROXIDE SUSPENSION 30 ML UDCUP PO PRN (10:45)
[2019-12-24] MEDS: OxyCODONE HCL/ACETAMINOPHEN 5-325 MG TABLET PO PRN ×3 (11:26→22:58)
[2019-12-24 12:00] VITALS: BP 105/63
[2019-12-24] MEDS: AZITHROMYCIN 250 MG TABLET PO SCH (13:36)
[2019-12-24] MEDS ORDERED: CARISOPRODOL 350 MG TABLET PO PRN (15:15)
[2019-12-24] MEDS: HEPARIN SODIUM,PORCINE 5,000 UNITS/ML VIAL SQ SCH ×2 (15:35→22:57)
[2019-12-24 15:38] VITALS: BP 101/70
[2019-12-24] MEDS: VITAMIN B COMP/VIT C/FOLIC ACID CAPSULE PO SCH (18:43)
[2019-12-24] MEDS: SEVELAMER CARBONATE 800 MG TABLET PO SCH (18:43)
[2019-12-24] MEDS: CALCIUM ACETATE 667 MG CAPSULE PO SCH (18:43)
[2019-12-24 20:00] VITALS: BP 107/67
[2019-12-24] MEDS: DOCUSATE SODIUM 100 MG CAPSULE PO SCH (21:16)
[2019-12-25 00:01] VITALS: BP 112/70
[2019-12-25 04:43] VITALS: BP 110/64
[2019-12-25 06:39] LABS: BASOPHILS % (AUTO) 0.7 % (0.0-2.0); EOSINOPHILS % (AUTO) 1.2 % (1.0-6.0); HEMATOCRIT 34.1 % (41-53); HEMOGLOBIN 11.3 g/dL (13.5-17.5); LYMPHOCYTES # (AUTO) 0.9 K/uL (1.0-4.8); LYMPHOCYTES % (AUTO) 16.3 % (22.0-44.0); MEAN CORPUSCULAR HEMOGLOBIN 35.7 pg (26.0-34.0); MEAN CORPUSCULAR HGB CONC 33.1 G/dL (31.0-37.0); MEAN CORPUSCULAR VOLUME 108 fL (80-100); MONOCYTES # (AUTO) 0.5 K/uL (0.1-1.0); MONOCYTES % (AUTO) 9.4 % (2.0-9.0); NEUTROPHILS % (AUTO) 72.4 % (40.0-70.0); PLATELET COUNT (AUTO) 106 K/uL (150-450); RED BLOOD CELL COUNT(AUTO) 3.16 MIL/uL (4.50-5.90); RED CELL DISTRIBUTION WIDTH 15.1 % (11.5-14.5)
[2019-12-25 06:57] LABS: ALBUMIN 3.3 g/dL (3.4-5.0); BILIRUBIN,TOTAL 0.8 mg/dL (0.1-1.0); CALCIUM, TOTAL 8.4 mg/dL (8.8-10.5); CREATININE 7.06 mg/dL (0.60-1.30); POTASSIUM 5.3 mmol/L (3.5-5.1); TOTAL PROTEIN, SERUM 8.2 g/dL (6.4-8.2)
[2019-12-25 08:00] VITALS: BP 104/73
[2019-12-25] MEDS: HEPARIN SODIUM,PORCINE 5,000 UNITS/ML VIAL SQ SCH (08:00)
[2019-12-25] MEDS ORDERED: ASPIRIN 81 MG CHEWABLE TABLET PO SCH (09:00)
[2019-12-25] MEDS ORDERED: FAMOTIDINE 20 MG TABLET PO SCH (09:00)
[2019-12-25] MEDS: DOCUSATE SODIUM 100 MG CAPSULE PO SCH (09:13)
[2019-12-25] MEDS: VITAMIN B COMP/VIT C/FOLIC ACID CAPSULE PO SCH (09:13)
[2019-12-25] MEDS: CALCIUM ACETATE 667 MG CAPSULE PO SCH ×2 (09:13→12:26)
[2019-12-25] MEDS: SEVELAMER CARBONATE 800 MG TABLET PO SCH ×2 (09:13→12:26)
[2019-12-25] MEDS: OxyCODONE HCL/ACETAMINOPHEN 5-325 MG TABLET PO PRN (09:13)
[2019-12-25] MEDS: AZITHROMYCIN 250 MG TABLET PO SCH (09:13)
[2019-12-25] MEDS ORDERED: ALBUTEROL SULFATE HFA 90 MCG/PUFF 8 GM INHALER IH PRN (11:45)
[2019-12-25 12:28] VITALS: BP 112/74
== END 2019-12-25 13:50 | disposition home or self-care (01) | DRG 194 ==
LOC: EMS 19:37 → 5N 12-24 00:01
PROVIDERS: ADMIT Internal Medicine; ATTEND Internal Medicine
DX: I13.2 Hypertensive heart and chronic kidney disease with heart failure and with stage 5 chronic kidney disease, or end stage renal disease (principal); E11.22 Type 2 diabetes mellitus with diabetic chronic kidney disease; I42.9 Cardiomyopathy, unspecified; N18.6 End stage renal disease; J44.9 Chronic obstructive pulmonary disease, unspecified; D63.1 Anemia in chronic kidney disease; G89.4 Chronic pain syndrome; I34.0 Nonrheumatic mitral (valve) insufficiency; E55.9 Vitamin D deficiency, unspecified; M10.9 Gout, unspecified; F19.10 Other psychoactive substance abuse, uncomplicated; F12.90 Cannabis use, unspecified, uncomplicated; F17.210 Nicotine dependence, cigarettes, uncomplicated; B19.20 Unspecified viral hepatitis C without hepatic coma; E21.3 Hyperparathyroidism, unspecified; I50.22 Chronic systolic (congestive) heart failure; K59.00 Constipation, unspecified; Z91.19 Patient's noncompliance with other medical treatment and regimen; Z82.5 Family history of asthma and other chronic lower respiratory diseases; Z88.8 Allergy status to other drugs, medicaments and biological substances; Z99.2 Dependence on renal dialysis
CPT/HCPCS: 87081; 87804; 93005; J1644; J1940

== ENCOUNTER 2020-05-06 12:09 | Emergency (ER) | payer OTHER ==
[~2020-05-06] VITALS: Ht 175.3 cm; Wt 75.5 kg
[~2020-05-06 12:09] MED LIST changes: -LEVO-72 PO
[2020-05-06] MEDS ORDERED: PENICILLIN G BENZATHINE LA 2,400,000 UNITS/4 ML SYRINGE IM ONE (13:45)
[2020-05-06 15:10] LABS: BASOPHILS % (AUTO) 0.7 % (0.0-2.0); HEMATOCRIT 47.3 % (41-53); HEMOGLOBIN 15.3 g/dL (13.5-17.5); LYMPHOCYTES # (AUTO) 1.1 K/uL (1.0-4.8); LYMPHOCYTES % (AUTO) 20.6 % (22.0-44.0); MEAN CORPUSCULAR HEMOGLOBIN 34.1 pg (26.0-34.0); MEAN CORPUSCULAR HGB CONC 32.4 G/dL (31.0-37.0); MEAN CORPUSCULAR VOLUME 105 fL (80-100); MONOCYTES # (AUTO) 0.6 K/uL (0.1-1.0); MONOCYTES % (AUTO) 11.5 % (2.0-9.0); NEUTROPHILS # (AUTO) 3.4 K/uL (1.8-7.7); NEUTROPHILS % (AUTO) 66.2 % (40.0-70.0); PLATELET COUNT (AUTO) 103 K/uL (150-450); RED BLOOD CELL COUNT(AUTO) 4.49 MIL/uL (4.50-5.90); RED CELL DISTRIBUTION WIDTH 14.8 % (11.5-14.5)
[2020-05-06 15:49] VITALS: BP 130/76
== END 2020-05-06 15:54 | disposition home or self-care (01) ==
LOC: EMS 12:11
DX: A51.0 Primary genital syphilis (principal); J45.909 Unspecified asthma, uncomplicated; I11.0 Hypertensive heart disease with heart failure; I50.9 Heart failure, unspecified; F17.210 Nicotine dependence, cigarettes, uncomplicated; F12.90 Cannabis use, unspecified, uncomplicated; F14.90 Cocaine use, unspecified, uncomplicated; Z88.0 Allergy status to penicillin
CPT/HCPCS: 36415; 85025; 86780; 87070; 96372; 99283; J0561; 87205

== ENCOUNTER 2020-05-11 16:49 | Emergency (ER) | payer OTHER ==
[~2020-05-11] VITALS: Ht 170.2 cm; Wt 77.3 kg
[2020-05-11] MEDS ORDERED: ACETAMINOPHEN 500 MG TABLET PO ONE (17:30)
[2020-05-11] MEDS ORDERED: MAALOX/LIDOCAINE/NYSTATIN SUSP 5 ML ORAL.SYG MM ONE (17:30)
[2020-05-11 18:00] VITALS: BP 100/74
== END 2020-05-11 18:31 | disposition home or self-care (01) ==
LOC: EMS 16:49
DX: A51.0 Primary genital syphilis (principal); F17.210 Nicotine dependence, cigarettes, uncomplicated; J45.909 Unspecified asthma, uncomplicated; I13.2 Hypertensive heart and chronic kidney disease with heart failure and with stage 5 chronic kidney disease, or end stage renal disease; N18.6 End stage renal disease; I50.9 Heart failure, unspecified; F14.90 Cocaine use, unspecified, uncomplicated; F12.90 Cannabis use, unspecified, uncomplicated; Z99.2 Dependence on renal dialysis; Z88.8 Allergy status to other drugs, medicaments and biological substances
CPT/HCPCS: 99406

== ENCOUNTER 2020-05-12 13:09 | Emergency (ER) | payer OTHER ==
[~2020-05-12] VITALS: Ht 175.3 cm; Wt 75.5 kg
[2020-05-12 13:13] VITALS: BP 100/70
[2020-05-12] MEDS ORDERED: AZITHROMYCIN 500 MG TABLET PO ONE (14:45)
[2020-05-12] MEDS ORDERED: ACETAMINOPHEN 500 MG TABLET PO ONE (14:45)
[2020-05-12] MEDS ORDERED: LIDOCAINE/PF 1% 2 ML VIAL IM ONE (14:45)
[2020-05-12] MEDS ORDERED: CefTRIAXone SODIUM 1 GM/VIAL IM ONE (14:45)
== END 2020-05-12 14:53 | disposition left against medical advice (07) ==
LOC: EMS 13:10
DX: N48.29 Other inflammatory disorders of penis (principal); F17.210 Nicotine dependence, cigarettes, uncomplicated; J45.909 Unspecified asthma, uncomplicated; F14.90 Cocaine use, unspecified, uncomplicated; F12.90 Cannabis use, unspecified, uncomplicated; I13.2 Hypertensive heart and chronic kidney disease with heart failure and with stage 5 chronic kidney disease, or end stage renal disease; N18.6 End stage renal disease; I50.9 Heart failure, unspecified; Z99.2 Dependence on renal dialysis; Z88.8 Allergy status to other drugs, medicaments and biological substances
CPT/HCPCS: 99406; Z7502

== ENCOUNTER 2020-09-19 09:38 | Emergency (ER) | payer OTHER ==
[~2020-09-19] VITALS: Ht 175.3 cm; Wt 74.0 kg
[2020-09-19] MEDS ORDERED: BACITRACIN 0.9 GM PACKET OINTMENT TP ONE (10:45)
[2020-09-19 10:53] LABS: BASOPHILS % (AUTO) 0.9 % (0.0-2.0); EOSINOPHILS % (AUTO) 2.7 % (1.0-6.0); HEMATOCRIT 52.1 % (41-53); HEMOGLOBIN 17.6 g/dL (13.5-17.5); LYMPHOCYTES % (AUTO) 27.1 % (22.0-44.0); MEAN CORPUSCULAR HEMOGLOBIN 35.8 pg (26.0-34.0); MEAN CORPUSCULAR HGB CONC 33.9 G/dL (31.0-37.0); MEAN CORPUSCULAR VOLUME 106 fL (80-100); MONOCYTES # (AUTO) 0.4 K/uL (0.1-1.0); MONOCYTES % (AUTO) 10.1 % (2.0-9.0); NEUTROPHILS # (AUTO) 2.1 K/uL (1.8-7.7); NEUTROPHILS % (AUTO) 59.2 % (40.0-70.0); PLATELET COUNT (AUTO) 85 K/uL (150-450); RED BLOOD CELL COUNT(AUTO) 4.92 MIL/uL (4.50-5.90); RED CELL DISTRIBUTION WIDTH 14.4 % (11.5-14.5)
[2020-09-19] MEDS ORDERED: AMOX TR/POT CLAV 875 MG/125 MG TABLET PO ONE (11:00)
[2020-09-19] MEDS ORDERED: HYDROCODONE/ACETAMINOPHEN 5-325 MG TABLET PO ONE (11:00)
[2020-09-19 11:04] LABS: CALCIUM, TOTAL 9.1 mg/dL (8.8-10.5); CREATININE 9.11 mg/dL (0.60-1.30); POTASSIUM 4.2 mmol/L (3.5-5.1)
[2020-09-19 11:09] LABS: ALBUMIN 3.3 g/dL (3.4-5.0); BILIRUBIN,TOTAL 1.1 mg/dL (0.1-1.0); TOTAL PROTEIN, SERUM 8.1 g/dL (6.4-8.2)
[2020-09-19 11:15] LABS: PROTHROMBIN TIME 11.4 SEC (9.4-11.6)
[2020-09-19 12:24] VITALS: BP 121/63
== END 2020-09-19 12:40 | disposition home or self-care (01) ==
LOC: EMS 09:38
DX: T82.838A Hemorrhage due to vascular prosthetic devices, implants and grafts, initial encounter (principal); F17.210 Nicotine dependence, cigarettes, uncomplicated; F12.90 Cannabis use, unspecified, uncomplicated; F14.90 Cocaine use, unspecified, uncomplicated; I13.2 Hypertensive heart and chronic kidney disease with heart failure and with stage 5 chronic kidney disease, or end stage renal disease; I50.9 Heart failure, unspecified; N18.6 End stage renal disease; Y83.8 Other surgical procedures as the cause of abnormal reaction of the patient, or of later complication, without mention of misadventure at the time of the procedure; Y82.8 Other medical devices associated with adverse incidents
CPT/HCPCS: 99406

== ENCOUNTER 2020-09-25 10:21 | Emergency (ER) | payer OTHER ==
[~2020-09-25] VITALS: Ht 175.3 cm; Wt 79.5 kg
[2020-09-25] MEDS ORDERED: HYDROCODONE/ACETAMINOPHEN 5-325 MG TABLET PO ONE (11:30)
[2020-09-25] MEDS ORDERED: PENICILLIN G BENZATHINE LA 2,400,000 UNITS/4 ML SYRINGE IM ONE (12:15)
[2020-09-25 13:41] VITALS: BP 119/71
== END 2020-09-25 13:41 | disposition home or self-care (01) ==
LOC: EMS 10:24
DX: N48.89 Other specified disorders of penis (principal); I11.0 Hypertensive heart disease with heart failure; I50.9 Heart failure, unspecified; J45.909 Unspecified asthma, uncomplicated; F17.210 Nicotine dependence, cigarettes, uncomplicated; F14.90 Cocaine use, unspecified, uncomplicated; F12.90 Cannabis use, unspecified, uncomplicated; Z88.8 Allergy status to other drugs, medicaments and biological substances; Z79.899 Other long term (current) drug therapy
CPT/HCPCS: 36415; 86592; 96372; 99283; J0561

== ENCOUNTER 2020-10-01 07:52 | Emergency (ER) | payer OTHER ==
[~2020-10-01] VITALS: Ht 175.3 cm; Wt 73.6 kg
[2020-10-01] MEDS ORDERED: LIDOCAINE 1% 10 ML VIAL ONE (08:09)
[2020-10-01] MEDS ORDERED: LIDOCAINE 1% 10 ML VIAL INJ ONE (08:15)
[2020-10-01] MEDS ORDERED: MORPHINE SULFATE 2 MG/ML SYRINGE IVP ONE (08:15)
[2020-10-01] MEDS ORDERED: MORPHINE SULFATE 4 MG/ML SYRINGE IVP ONE (08:15)
[2020-10-01] MEDS ORDERED: BACITRACIN 0.9 GM PACKET OINTMENT TP ONE (08:30)
[2020-10-01 08:42] LABS: ALBUMIN 3.4 g/dL (3.4-5.0); CALCIUM, TOTAL 7.7 mg/dL (8.8-10.5); CREATININE 6.72 mg/dL (0.60-1.30); POTASSIUM 4.9 mmol/L (3.5-5.1); TOTAL PROTEIN, SERUM 7.9 g/dL (6.4-8.2)
[2020-10-01 08:44] LABS: BASOPHILS % (AUTO) 0.8 % (0.0-2.0); EOSINOPHILS % (AUTO) 1.8 % (1.0-6.0); HEMATOCRIT 44.3 % (41-53); HEMOGLOBIN 14.8 g/dL (13.5-17.5); LYMPHOCYTES # (AUTO) 1.5 K/uL (1.0-4.8); MEAN CORPUSCULAR HEMOGLOBIN 34.9 pg (26.0-34.0); MEAN CORPUSCULAR HGB CONC 33.3 G/dL (31.0-37.0); MEAN CORPUSCULAR VOLUME 105 fL (80-100); MONOCYTES # (AUTO) 0.6 K/uL (0.1-1.0); MONOCYTES % (AUTO) 10.9 % (2.0-9.0); NEUTROPHILS # (AUTO) 3.5 K/uL (1.8-7.7); NEUTROPHILS % (AUTO) 60.5 % (40.0-70.0); PLATELET COUNT (AUTO) 118 K/uL (150-450); RED BLOOD CELL COUNT(AUTO) 4.22 MIL/uL (4.50-5.90); RED CELL DISTRIBUTION WIDTH 14.9 % (11.5-14.5)
[2020-10-01 08:48] LABS: INR 1.1 (0.9-1.1); PROTHROMBIN TIME 11.9 SEC (9.4-11.6)
[2020-10-01] MEDS ORDERED: VANCOMYCIN HCL 1 GM/D5% WATER 200 ML IV ONE (09:00)
[2020-10-01 11:04] VITALS: BP 109/70
== END 2020-10-01 11:31 | disposition home or self-care (01) ==
LOC: EMS 07:52
DX: T82.838A Hemorrhage due to vascular prosthetic devices, implants and grafts, initial encounter (principal); I11.0 Hypertensive heart disease with heart failure; I50.9 Heart failure, unspecified; J44.9 Chronic obstructive pulmonary disease, unspecified; K76.9 Liver disease, unspecified; F17.210 Nicotine dependence, cigarettes, uncomplicated; F14.90 Cocaine use, unspecified, uncomplicated; F12.90 Cannabis use, unspecified, uncomplicated; Z79.899 Other long term (current) drug therapy; Z88.8 Allergy status to other drugs, medicaments and biological substances; X58.XXXA Exposure to other specified factors, initial encounter
CPT/HCPCS: 36415; 80053; 84484; 85025; 85610; 85730; 96365; 96366; 99291; J2270; J3370; J3490

== ENCOUNTER 2021-07-07 01:29 | Inpatient (IN) | payer OTHER ==
[~2021-07-07] VITALS: Ht 175.3 cm; Wt 83.9 kg
[~2021-07-07 01:29] MED LIST changes: -ALBU8HFA IH; +ASPI-1450 PO; +ATOR20TA86 PO; -GUAIFDM PO; +METO25XL PO; +VITA-369 PO
[2021-07-07 03:09] LABS: BASOPHILS % (AUTO) 0.9 % (0.0-2.0); EOSINOPHILS % (AUTO) 2.4 % (1.0-6.0); HEMATOCRIT 33.7 % (41-53); HEMOGLOBIN 10.8 g/dL (13.5-17.5); LYMPHOCYTES # (AUTO) 1.2 K/uL (1.0-4.8); LYMPHOCYTES % (AUTO) 24.3 % (22.0-44.0); MEAN CORPUSCULAR HEMOGLOBIN 32.8 pg (26.0-34.0); MEAN CORPUSCULAR HGB CONC 31.9 G/dL (31.0-37.0); MEAN CORPUSCULAR VOLUME 103 fL (80-100); MONOCYTES # (AUTO) 0.5 K/uL (0.1-1.0); MONOCYTES % (AUTO) 10.1 % (2.0-9.0); NEUTROPHILS # (AUTO) 3.2 K/uL (1.8-7.7); NEUTROPHILS % (AUTO) 62.3 % (40.0-70.0); PLATELET COUNT (AUTO) 100 K/uL (150-450); RED BLOOD CELL COUNT(AUTO) 3.28 MIL/uL (4.50-5.90); RED CELL DISTRIBUTION WIDTH 19.3 % (11.5-14.5)
[2021-07-07 04:07] LABS: CALCIUM, TOTAL 9.6 mg/dL (8.8-10.5); CREATININE 8.31 mg/dL (0.60-1.30); POTASSIUM 5.9 mmol/L (3.5-5.1)
[2021-07-07 04:14] LABS: ALBUMIN 3.5 g/dL (3.4-5.0); BILIRUBIN,TOTAL 0.9 mg/dL (0.1-1.0); TOTAL PROTEIN, SERUM 8.7 g/dL (6.4-8.2)
[2021-07-07] MEDS ORDERED: FUROSEMIDE 40 MG/4 ML VIAL IVP ONE (04:30)
[2021-07-07] MEDS ORDERED: MAGNESIUM SULFATE 2 GM in DEXTROSE 5%-WATER 100 ML IV ONE (04:30)
[2021-07-07] MEDS ORDERED: ASPIRIN 81 MG CHEWABLE TABLET PO ONE (04:30)
[2021-07-07] MEDS ORDERED: INSULIN REGULAR, HUMAN 100 UNITS/ML IVP ONE (04:30)
[2021-07-07] MEDS ORDERED: MAGNESIUM SULFATE 2 GM in DEXTROSE 5%-WATER 50 ML IV ONE (04:45)
[2021-07-07] MEDS ORDERED: ONDANSETRON HCL 4 MG/2 ML VIAL IVP PRN (05:00)
[2021-07-07] MEDS ORDERED: ACETAMINOPHEN 325 MG TABLET PO PRN (05:00)
[2021-07-07] MEDS ORDERED: 0.9% SODIUM CHLORIDE 10 ML SYRINGE IVP PRN (05:00)
[2021-07-07 06:12] LABS: CHOL/HDL RATIO 1.9 (4.2-7.3)
[2021-07-07 06:19] LABS: HEMOGLOBIN A1C 7.4 % (3.8-5.6)
[2021-07-07 06:53] LABS: COVID AG,FIA SOURCE NASOPHARYNGEAL
[2021-07-07 07:09] LABS: CALCIUM, TOTAL 9.6 mg/dL (8.8-10.5); CREATININE 8.7 mg/dL (0.60-1.30); MAGNESIUM 2.5 mg/dL (1.80-2.40); POTASSIUM 5.7 mmol/L (3.5-5.1)
[2021-07-07] MEDS: ASPIRIN 81 MG CHEWABLE TABLET PO SCH (08:37)
[2021-07-07] MEDS: PANTOPRAZOLE SODIUM 40 MG DR TABLET PO SCH (08:37)
[2021-07-07] MEDS ORDERED: VITAMIN B COMPLEX/FOLIC ACID 1 TABLET PO SCH (09:00)
[2021-07-07] MEDS: ALLOPURINOL 100 MG TABLET PO SCH (10:29)
[2021-07-07] MEDS: CARISOPRODOL 350 MG TABLET PO SCH ×2 (10:29→21:29)
[2021-07-07] MEDS: VITAMIN B COMP/VIT C/FOLIC ACID CAPSULE PO SCH (10:29)
[2021-07-07] MEDS: METOPROLOL SUCCINATE 25 MG ER TABLET PO SCH ×2 (10:30→21:00)
[2021-07-07 11:48] LABS: GLUCOSE,POINT OF CARE 189 MG/DL (70-110)
[2021-07-07] MEDS: CALCIUM ACETATE 667 MG CAPSULE PO SCH ×2 (12:47→18:16)
[2021-07-07] MEDS: SEVELAMER CARBONATE 800 MG TABLET PO SCH ×2 (12:48→18:17)
[2021-07-07] MEDS ORDERED: SODIUM POLYSTYRENE SULFONATE 15 GM/60 ML SUSPENSION BOTTLE PO ONE (13:45)
[2021-07-07] MEDS ORDERED: DEXTROSE 50%-WATER 25 GM/50 ML SYRINGE IVP PRN (15:30)
[2021-07-07 15:48] LABS: BASOPHILS % (AUTO) 0.4 % (0.0-2.0); EOSINOPHILS % (AUTO) 1.5 % (1.0-6.0); HEMATOCRIT 33.5 % (41-53); HEMOGLOBIN 10.5 g/dL (13.5-17.5); LYMPHOCYTES % (AUTO) 19.1 % (22.0-44.0); MEAN CORPUSCULAR HGB CONC 31.3 G/dL (31.0-37.0); MEAN CORPUSCULAR VOLUME 105 fL (80-100); MONOCYTES # (AUTO) 0.6 K/uL (0.1-1.0); MONOCYTES % (AUTO) 11.3 % (2.0-9.0); NEUTROPHILS # (AUTO) 3.6 K/uL (1.8-7.7); NEUTROPHILS % (AUTO) 67.7 % (40.0-70.0); PLATELET COUNT (AUTO) 94 K/uL (150-450); RED BLOOD CELL COUNT(AUTO) 3.18 MIL/uL (4.50-5.90); RED CELL DISTRIBUTION WIDTH 19.9 % (11.5-14.5)
[2021-07-07 16:19] LABS: PLATELET MORPHOLOGY COMMENT GIANT PLTS PRESENT
[2021-07-07 18:42] LABS: GLUCOSE,POINT OF CARE 162 MG/DL (70-110)
[2021-07-07] MEDS: INSULIN LISPRO 100 UNITS/ML SQ PRN (18:53)
[2021-07-07] MEDS: ATORVASTATIN CALCIUM 20 MG TABLET PO SCH (21:00)
[2021-07-07 21:25] VITALS: BP 107/74
[2021-07-07 23:49] VITALS: BP 117/70
[2021-07-08 01:17] LABS: GLUCOMETER DEV NAME(LOC) 5S.2B; GLUCOSE,POINT OF CARE 95 MG/DL (70-110)
[2021-07-08 05:00] VITALS: BP 90/57
[2021-07-08 06:29] LABS: BASOPHILS % (AUTO) 0.6 % (0.0-2.0); EOSINOPHILS % (AUTO) 2.4 % (1.0-6.0); HEMATOCRIT 34.8 % (41-53); LYMPHOCYTES # (AUTO) 1.2 K/uL (1.0-4.8); LYMPHOCYTES % (AUTO) 19.2 % (22.0-44.0); MEAN CORPUSCULAR HEMOGLOBIN 33.3 pg (26.0-34.0); MEAN CORPUSCULAR HGB CONC 31.6 G/dL (31.0-37.0); MEAN CORPUSCULAR VOLUME 105 fL (80-100); MONOCYTES # (AUTO) 0.6 K/uL (0.1-1.0); MONOCYTES % (AUTO) 8.9 % (2.0-9.0); NEUTROPHILS # (AUTO) 4.3 K/uL (1.8-7.7); NEUTROPHILS % (AUTO) 68.9 % (40.0-70.0); PLATELET COUNT (AUTO) 107 K/uL (150-450); RED BLOOD CELL COUNT(AUTO) 3.31 MIL/uL (4.50-5.90); RED CELL DISTRIBUTION WIDTH 20.8 % (11.5-14.5)
[2021-07-08] MEDS: INSULIN LISPRO 100 UNITS/ML SQ PRN ×3 (06:37→21:01)
[2021-07-08 06:44] LABS: CREATININE 9.66 mg/dL (0.60-1.30)
[2021-07-08 06:45] LABS: CALCIUM, TOTAL 9.3 mg/dL (8.8-10.5)
[2021-07-08 06:59] LABS: POTASSIUM 7.2 mmol/L (3.5-5.1)
[2021-07-08 07:08] LABS: GLUCOMETER DEV NAME(LOC) 5S.1; GLUCOSE,POINT OF CARE 205 MG/DL (70-110)
[2021-07-08 07:09] LABS: PLATELET MORPHOLOGY COMMENT GIANT PLTS PRESENT
[2021-07-08] MEDS ORDERED: DEXTROSE 50%-WATER 25 GM/50 ML SYRINGE IVP ONE (07:15)
[2021-07-08] MEDS ORDERED: ALBUTEROL SULFATE 2.5 MG/0.5 ML NEB SOLUTION NEB ONE (07:15)
[2021-07-08] MEDS ORDERED: CALCIUM GLUCONATE 100 MG/ML 10 ML IVP ONE (07:15)
[2021-07-08] MEDS ORDERED: INSULIN REGULAR, HUMAN 100 UNITS/ML IVP ONE (07:45)
[2021-07-08] MEDS ORDERED: 0.9% SODIUM CHLORIDE 5 ML NEB SOLUTION NEB ONE (07:51)
[2021-07-08 08:05] VITALS: BP 96/66
[2021-07-08] MEDS: CALCIUM ACETATE 667 MG CAPSULE PO SCH ×3 (08:17→18:41)
[2021-07-08] MEDS: ASPIRIN 81 MG CHEWABLE TABLET PO SCH (08:18)
[2021-07-08] MEDS: VITAMIN B COMP/VIT C/FOLIC ACID CAPSULE PO SCH (08:18)
[2021-07-08] MEDS: SEVELAMER CARBONATE 800 MG TABLET PO SCH ×3 (08:18→18:42)
[2021-07-08] MEDS: PANTOPRAZOLE SODIUM 40 MG DR TABLET PO SCH (08:18)
[2021-07-08] MEDS: CARISOPRODOL 350 MG TABLET PO SCH ×2 (08:18→20:32)
[2021-07-08] MEDS: METOPROLOL SUCCINATE 25 MG ER TABLET PO SCH ×2 (09:00→20:32)
[2021-07-08] MEDS: ALLOPURINOL 100 MG TABLET PO SCH (09:00)
[2021-07-08 13:20] LABS: GLUCOMETER DEV NAME(LOC) 5S.2B; GLUCOSE,POINT OF CARE 110 MG/DL (70-110)
[2021-07-08] MEDS ORDERED: SODIUM CHLORIDE 0.9% 2,000 ML ONE (14:31)
[2021-07-08 15:39] VITALS: BP 100/52
[2021-07-08 16:20] VITALS: BP 100/56
[2021-07-08 17:13] LABS: % IRON SATURATION 15.2 % (30-44)
[2021-07-08] MEDS: PANTOPRAZOLE SODIUM 40 MG/VIAL IVP SCH ×2 (17:38→20:33)
[2021-07-08 20:12] VITALS: BP 95/53
[2021-07-08] MEDS: ATORVASTATIN CALCIUM 20 MG TABLET PO SCH (20:34)
[2021-07-08] MEDS ORDERED: ACETAMINOPHEN 325 MG TABLET PO PRN (21:00)
[2021-07-08 23:16] LABS: GLUCOMETER DEV NAME(LOC) 5S.2B; GLUCOSE,POINT OF CARE 256 MG/DL (70-110)
[2021-07-08 23:16] LABS: GLUCOMETER DEV NAME(LOC) 5S.1; GLUCOSE,POINT OF CARE 173 MG/DL (70-110)
[2021-07-09 05:26] VITALS: BP 95/67
[2021-07-09] MEDS: INSULIN LISPRO 100 UNITS/ML SQ PRN ×2 (05:55→13:01)
[2021-07-09 07:40] VITALS: BP 96/66
[2021-07-09] MEDS ORDERED: SODIUM CHLORIDE 0.9% 2,000 ML ONE (07:47)
[2021-07-09 07:51] LABS: GLUCOMETER DEV NAME(LOC) 5S.2B; GLUCOSE,POINT OF CARE 191 MG/DL (70-110)
[2021-07-09] MEDS: CALCIUM ACETATE 667 MG CAPSULE PO SCH ×2 (07:54→13:02)
[2021-07-09] MEDS: SEVELAMER CARBONATE 800 MG TABLET PO SCH ×2 (07:54→13:02)
[2021-07-09] MEDS: VITAMIN B COMP/VIT C/FOLIC ACID CAPSULE PO SCH (07:55)
[2021-07-09] MEDS: ASPIRIN 81 MG CHEWABLE TABLET PO SCH (07:55)
[2021-07-09] MEDS: CARISOPRODOL 350 MG TABLET PO SCH (07:55)
[2021-07-09] MEDS: ALLOPURINOL 100 MG TABLET PO SCH (07:56)
[2021-07-09] MEDS: PANTOPRAZOLE SODIUM 40 MG/VIAL IVP SCH (08:21)
[2021-07-09 08:39] LABS: BASOPHILS % (AUTO) 0.7 % (0.0-2.0); EOSINOPHILS % (AUTO) 2.3 % (1.0-6.0); HEMOGLOBIN 10.5 g/dL (13.5-17.5); LYMPHOCYTES % (AUTO) 18.9 % (22.0-44.0); MEAN CORPUSCULAR HEMOGLOBIN 33.5 pg (26.0-34.0); MEAN CORPUSCULAR HGB CONC 31.9 G/dL (31.0-37.0); MEAN CORPUSCULAR VOLUME 105 fL (80-100); MONOCYTES # (AUTO) 0.4 K/uL (0.1-1.0); MONOCYTES % (AUTO) 7.9 % (2.0-9.0); NEUTROPHILS # (AUTO) 3.7 K/uL (1.8-7.7); NEUTROPHILS % (AUTO) 70.2 % (40.0-70.0); PLATELET COUNT (AUTO) 90 K/uL (150-450); RED BLOOD CELL COUNT(AUTO) 3.14 MIL/uL (4.50-5.90); RED CELL DISTRIBUTION WIDTH 21.4 % (11.5-14.5)
[2021-07-09] MEDS: METOPROLOL SUCCINATE 25 MG ER TABLET PO SCH (09:00)
[2021-07-09 09:23] LABS: PLATELET MORPHOLOGY COMMENT GIANT PLTS PRESENT
[2021-07-09] MEDS ORDERED: HYDROCODONE/ACETAMINOPHEN 5-325 MG TABLET PO ONE (09:30)
[2021-07-09 11:20] VITALS: BP 100/71
[2021-07-10 04:18] LABS: GLUCOMETER DEV NAME(LOC) 5S.1; GLUCOSE,POINT OF CARE 167 MG/DL (70-110)
== END 2021-07-09 16:05 | disposition home or self-care (01) | DRG 194 ==
LOC: EMS 01:29 → 5S 05:37
PROVIDERS: ADMIT Internal Medicine; ATTEND Internal Medicine
PROC: 5A1D70Z Performance of Urinary Filtration, Intermittent, Less than 6 Hours Per Day (ICD-10-PCS; principal; 2021-07-08)
PROC: 5A1D70Z Performance of Urinary Filtration, Intermittent, Less than 6 Hours Per Day (ICD-10-PCS; 2021-07-09)
DX: I13.2 Hypertensive heart and chronic kidney disease with heart failure and with stage 5 chronic kidney disease, or end stage renal disease (principal); N18.6 End stage renal disease; I42.9 Cardiomyopathy, unspecified; D63.1 Anemia in chronic kidney disease; K92.2 Gastrointestinal hemorrhage, unspecified; D63.8 Anemia in other chronic diseases classified elsewhere; R07.89 Other chest pain; I50.23 Acute on chronic systolic (congestive) heart failure; E87.5 Hyperkalemia; E21.3 Hyperparathyroidism, unspecified; F17.210 Nicotine dependence, cigarettes, uncomplicated; F19.10 Other psychoactive substance abuse, uncomplicated; M10.9 Gout, unspecified; J44.9 Chronic obstructive pulmonary disease, unspecified; I25.10 Atherosclerotic heart disease of native coronary artery without angina pectoris; B19.20 Unspecified viral hepatitis C without hepatic coma; Z20.822 Contact with and (suspected) exposure to COVID-19; E78.5 Hyperlipidemia, unspecified; Z88.8 Allergy status to other drugs, medicaments and biological substances; Z79.899 Other long term (current) drug therapy; Z99.2 Dependence on renal dialysis; Z91.19 Patient's noncompliance with other medical treatment and regimen; Z79.84 Long term (current) use of oral hypoglycemic drugs; Z82.5 Family history of asthma and other chronic lower respiratory diseases; Z86.718 Personal history of other venous thrombosis and embolism; Z91.15 Patient's noncompliance with renal dialysis
CPT/HCPCS: 71045; 80048; 80053; 80061; 82271; 82728; 82962; 83036; 83540; 83550; 83735; 83880; 84484; 85025; 87340; 93005; 93306; 94640; 99285; C9113; G0378; J0610; J1815; J1940; J2405; J3475; J7030; J7060; 36415-L1; 36415-TC; C9803; J7613

== ENCOUNTER 2021-08-05 11:33 | Emergency (ER) | payer OTHER ==
[~2021-08-05] VITALS: Ht 175.3 cm; Wt 90.9 kg
[2021-08-05] MEDS ORDERED: MORPHINE SULFATE 2 MG/ML SYRINGE IVP ONE (12:30)
[2021-08-05 13:02] LABS: BASOPHILS % (AUTO) 0.9 % (0.0-2.0); HEMATOCRIT 35.2 % (41-53); HEMOGLOBIN 11.3 g/dL (13.5-17.5); LYMPHOCYTES # (AUTO) 1.2 K/uL (1.0-4.8); LYMPHOCYTES % (AUTO) 16.7 % (22.0-44.0); MEAN CORPUSCULAR HGB CONC 32.2 G/dL (31.0-37.0); MEAN CORPUSCULAR VOLUME 100 fL (80-100); MONOCYTES # (AUTO) 0.7 K/uL (0.1-1.0); MONOCYTES % (AUTO) 9.7 % (2.0-9.0); NEUTROPHILS # (AUTO) 4.9 K/uL (1.8-7.7); NEUTROPHILS % (AUTO) 70.7 % (40.0-70.0); PLATELET COUNT (AUTO) 87 K/uL (150-450); RED BLOOD CELL COUNT(AUTO) 3.53 MIL/uL (4.50-5.90); RED CELL DISTRIBUTION WIDTH 18.8 % (11.5-14.5)
[2021-08-05 13:11] LABS: CALCIUM, TOTAL 9.9 mg/dL (8.8-10.5); CREATININE 8.66 mg/dL (0.60-1.30); POTASSIUM 4.6 mmol/L (3.5-5.1)
[2021-08-05 13:17] LABS: ALBUMIN 3.7 g/dL (3.4-5.0); BILIRUBIN,TOTAL 1.2 mg/dL (0.1-1.0); TOTAL PROTEIN, SERUM 8.9 g/dL (6.4-8.2)
[2021-08-05 15:00] VITALS: BP 110/67
== END 2021-08-05 15:52 | disposition home or self-care (01) ==
LOC: EMS 11:33 → EDUNIT# 11:33 → EMS 15:52
DX: R10.84 Generalized abdominal pain (principal); J45.909 Unspecified asthma, uncomplicated; I12.0 Hypertensive chronic kidney disease with stage 5 chronic kidney disease or end stage renal disease; N18.6 End stage renal disease; F17.210 Nicotine dependence, cigarettes, uncomplicated; F14.90 Cocaine use, unspecified, uncomplicated; F12.90 Cannabis use, unspecified, uncomplicated; Z99.2 Dependence on renal dialysis; Z88.8 Allergy status to other drugs, medicaments and biological substances; Z79.82 Long term (current) use of aspirin
CPT/HCPCS: 36415; 71045; 74176; 80053; 83690; 84484; 85025; 93005; 96374; 99285; J2270

== ENCOUNTER 2021-09-04 03:24 | Inpatient (IN) | payer OTHER ==
[~2021-09-04] VITALS: Ht 175.3 cm; Wt 85.0 kg
[2021-09-04 04:33] LABS: BASOPHILS % (AUTO) 0.6 % (0.0-2.0); EOSINOPHILS % (AUTO) 1.3 % (1.0-6.0); HEMOGLOBIN 10.9 g/dL (13.5-17.5); LYMPHOCYTES # (AUTO) 0.8 K/uL (1.0-4.8); MEAN CORPUSCULAR HEMOGLOBIN 32.8 pg (26.0-34.0); MEAN CORPUSCULAR VOLUME 103 fL (80-100); MONOCYTES # (AUTO) 0.5 K/uL (0.1-1.0); MONOCYTES % (AUTO) 8.5 % (2.0-9.0); NEUTROPHILS # (AUTO) 4.1 K/uL (1.8-7.7); NEUTROPHILS % (AUTO) 75.6 % (40.0-70.0); RED BLOOD CELL COUNT(AUTO) 3.31 MIL/uL (4.50-5.90); RED CELL DISTRIBUTION WIDTH 19.5 % (11.5-14.5)
[2021-09-04 04:46] LABS: ALBUMIN 3.2 g/dL (3.4-5.0); CALCIUM, TOTAL 9.5 mg/dL (8.8-10.5); CREATININE 8.4 mg/dL (0.60-1.30); POTASSIUM 5.1 mmol/L (3.5-5.1); TOTAL PROTEIN, SERUM 8.1 g/dL (6.4-8.2)
[2021-09-04 04:47] LABS: D-DIMER 1.94 mg/L FEU (0.00-0.50); INR 1.1 (0.9-1.1); PROTHROMBIN TIME 11.5 SEC (9.4-11.6)
[2021-09-04 05:09] LABS: PLATELET COUNT (AUTO) 57 K/uL (150-450)
[2021-09-04] MEDS ORDERED: INSULIN REGULAR, HUMAN 100 UNITS/ML IVP ONE (05:15)
[2021-09-04] MEDS ORDERED: SODIUM CHLORIDE 0.9% 100 ML ONE (05:21)
[2021-09-04] MEDS ORDERED: IOHEXOL 350 MG/ML 100 ML VIAL ONE (05:21)
[2021-09-04] MEDS ORDERED: LORazepam 2 MG/ML VIAL IVP ONE (06:00)
[2021-09-04 06:18] LABS: COVID AG,FIA SOURCE NASOPHARYNGEAL
[2021-09-04] MEDS ORDERED: ACETAMINOPHEN 325 MG TABLET PO PRN (08:15)
[2021-09-04] MEDS ORDERED: 0.9% SODIUM CHLORIDE 10 ML SYRINGE IVP PRN (08:15)
[2021-09-04] MEDS ORDERED: ONDANSETRON HCL 4 MG/2 ML VIAL IVP PRN ×2 (08:15→13:30)
[2021-09-04 08:53] LABS: GLUCOMETER DEV NAME(LOC) ERT.5; GLUCOSE,POINT OF CARE 319 MG/DL (70-110)
[2021-09-04] MEDS ORDERED: DEXTROSE 50%-WATER 25 GM/50 ML SYRINGE IVP PRN ×3 (11:00→22:15)
[2021-09-04] MEDS: INSULIN LISPRO 100 UNITS/ML SQ PRN ×4 (12:23→22:30)
[2021-09-04 13:00] LABS: GLUCOMETER DEV NAME(LOC) ERT.5; GLUCOSE,POINT OF CARE 374 MG/DL (70-110)
[2021-09-04] MEDS ORDERED: MORPHINE SULFATE 2 MG/ML SYRINGE IVP PRN (13:30)
[2021-09-04] MEDS ORDERED: BISACODYL 10 MG RECTAL RECTAL SUPPOSITORY PR PRN (13:30)
[2021-09-04] MEDS ORDERED: ZOLPIDEM TARTRATE 5 MG TABLET PO PRN (13:30)
[2021-09-04] MEDS ORDERED: INSULIN LISPRO 100 UNITS/ML SQ PRN (13:30)
[2021-09-04] MEDS ORDERED: MAGNESIUM HYDROXIDE SUSPENSION 30 ML UDCUP PO PRN (13:30)
[2021-09-04 13:59] LABS: HEMOGLOBIN A1C 8.8 % (3.8-5.6)
[2021-09-04 14:58] LABS: GLUCOMETER DEV NAME(LOC) ERT.5; GLUCOSE,POINT OF CARE 476 MG/DL (70-110)
[2021-09-04] MEDS: HEPARIN SODIUM,PORCINE 5,000 UNITS/ML VIAL SQ SCH ×2 (16:07→22:56)
[2021-09-04] MEDS ORDERED: LIDOCAINE/PF 1% 2 ML VIAL IM ONE (17:00)
[2021-09-04] MEDS ORDERED: MANNITOL 25%-12.5 GM/50 ML VIAL IVP ONE (17:00)
[2021-09-04] MEDS: CALCIUM ACETATE 667 MG CAPSULE PO SCH (17:56)
[2021-09-04] MEDS: SEVELAMER CARBONATE 800 MG TABLET PO SCH (17:56)
[2021-09-04] MEDS: ATORVASTATIN CALCIUM 20 MG TABLET PO SCH (20:52)
[2021-09-04] MEDS: CARISOPRODOL 350 MG TABLET PO SCH (20:52)
[2021-09-04] MEDS: DOCUSATE SODIUM 100 MG CAPSULE PO SCH (20:52)
[2021-09-04] MEDS ORDERED: SODIUM CHLORIDE 0.9% 1,000 ML ONE ×2 (20:56)
[2021-09-04] MEDS: METOPROLOL SUCCINATE 25 MG ER TABLET PO SCH (21:00)
[2021-09-04 21:48] VITALS: BP 103/68
[2021-09-04] MEDS: INSULIN GLARGINE,HUM.REC.ANLOG 100 UNITS/ML SQ SCH (22:30)
[2021-09-04] MEDS: HYDROCODONE/ACETAMINOPHEN 5-325 MG TABLET PO PRN (23:01)
[2021-09-05] VITALS (7 sets, daily range): BP systolic 86–114; BP diastolic 48–82
[2021-09-05] MEDS ORDERED: AMIODARONE HCL 360 MG in DEXTROSE 5%-WATER 242.8 ML IV ONE ×2
[2021-09-05] MEDS ORDERED: AMIODARONE HCL 150 MG in DEXTROSE 5%-WATER 97 ML IV ONE ×2
[2021-09-05] MEDS ORDERED: DiphenhydrAMINE HCL 50 MG/ML VIAL IVP PRN (00:15)
[2021-09-05] MEDS ORDERED: AMIODARONE HCL 540 MG in DEXTROSE 5%-WATER 239.2 ML IV ONE (06:00)
[2021-09-05 06:05] LABS: GLUCOMETER DEV NAME(LOC) 5S.2B; GLUCOSE,POINT OF CARE 391 MG/DL (70-110)
[2021-09-05 07:33] LABS: BASOPHILS % (AUTO) 0.6 % (0.0-2.0); EOSINOPHILS % (AUTO) 1.6 % (1.0-6.0); HEMATOCRIT 35.8 % (41-53); HEMOGLOBIN 11.5 g/dL (13.5-17.5); LYMPHOCYTES # (AUTO) 0.9 K/uL (1.0-4.8); LYMPHOCYTES % (AUTO) 16.2 % (22.0-44.0); MEAN CORPUSCULAR HEMOGLOBIN 32.2 pg (26.0-34.0); MEAN CORPUSCULAR HGB CONC 32.2 G/dL (31.0-37.0); MEAN CORPUSCULAR VOLUME 100 fL (80-100); MONOCYTES # (AUTO) 0.6 K/uL (0.1-1.0); MONOCYTES % (AUTO) 10.5 % (2.0-9.0); NEUTROPHILS # (AUTO) 4.1 K/uL (1.8-7.7); NEUTROPHILS % (AUTO) 71.1 % (40.0-70.0); PLATELET COUNT (AUTO) 63 K/uL (150-450); RED BLOOD CELL COUNT(AUTO) 3.58 MIL/uL (4.50-5.90); RED CELL DISTRIBUTION WIDTH 19.6 % (11.5-14.5)
[2021-09-05] MEDS: VITAMIN B COMPLEX/FOLIC ACID 1 TABLET PO SCH (07:55)
[2021-09-05] MEDS: ALLOPURINOL 100 MG TABLET PO SCH (07:55)
[2021-09-05] MEDS: CALCIUM ACETATE 667 MG CAPSULE PO SCH ×3 (07:55→18:00)
[2021-09-05] MEDS: CARISOPRODOL 350 MG TABLET PO SCH ×2 (07:55→21:00)
[2021-09-05] MEDS: PANTOPRAZOLE SODIUM 40 MG DR TABLET PO SCH (07:55)
[2021-09-05] MEDS: SEVELAMER CARBONATE 800 MG TABLET PO SCH ×3 (07:55→18:00)
[2021-09-05] MEDS: METOPROLOL SUCCINATE 25 MG ER TABLET PO SCH ×3 (07:55→21:00)
[2021-09-05] MEDS: DOCUSATE SODIUM 100 MG CAPSULE PO SCH ×2 (07:56→21:18)
[2021-09-05] MEDS: ASPIRIN 81 MG CHEWABLE TABLET PO SCH (07:56)
[2021-09-05] MEDS: HEPARIN SODIUM,PORCINE 5,000 UNITS/ML VIAL SQ SCH ×3 (07:56→23:57)
[2021-09-05 08:03] LABS: ALBUMIN 3.3 g/dL (3.4-5.0); BILIRUBIN,TOTAL 1.1 mg/dL (0.1-1.0); CALCIUM, TOTAL 9.2 mg/dL (8.8-10.5); CREATININE 6.6 mg/dL (0.60-1.30); POTASSIUM 4.7 mmol/L (3.5-5.1); TOTAL PROTEIN, SERUM 8.2 g/dL (6.4-8.2)
[2021-09-05 08:10] LABS: PLATELET MORPHOLOGY COMMENT GIANT PLTS PRESENT
[2021-09-05 11:21] LABS: GLUCOMETER DEV NAME(LOC) 5S.1; GLUCOSE,POINT OF CARE 137 MG/DL (70-110)
[2021-09-05] MEDS: INSULIN LISPRO 100 UNITS/ML SQ PRN ×2 (12:06→21:17)
[2021-09-05] MEDS: ACETAMINOPHEN 325 MG TABLET PO PRN ×2 (12:08→21:19)
[2021-09-05] MEDS ORDERED: SODIUM CHLORIDE 0.9% 2,000 ML ONE (17:13)
[2021-09-05 20:46] LABS: GLUCOMETER DEV NAME(LOC) 5S.1; GLUCOSE,POINT OF CARE 151 MG/DL (70-110)
[2021-09-05 20:46] LABS: GLUCOMETER DEV NAME(LOC) 5S.1; GLUCOSE,POINT OF CARE 119 MG/DL (70-110)
[2021-09-05 20:46] LABS: GLUCOMETER DEV NAME(LOC) 5S.1; GLUCOSE,POINT OF CARE 262 MG/DL (70-110)
[2021-09-05] MEDS ORDERED: MIDODRINE HCL 5 MG TABLET PO ONE (21:00)
[2021-09-05] MEDS: INSULIN GLARGINE,HUM.REC.ANLOG 100 UNITS/ML SQ SCH (21:17)
[2021-09-05] MEDS: ATORVASTATIN CALCIUM 20 MG TABLET PO SCH (21:19)
[2021-09-06] MEDS ORDERED: AMIODARONE HCL 750 MG in DEXTROSE 5%-WATER 485 ML IV SCH ×2
[2021-09-06] MEDS: HYDROCODONE/ACETAMINOPHEN 5-325 MG TABLET PO PRN (01:01)
[2021-09-06 04:29] VITALS: BP 106/62
[2021-09-06 06:16] LABS: GLUCOMETER DEV NAME(LOC) 5N.3; GLUCOSE,POINT OF CARE 87 MG/DL (70-110)
[2021-09-06 07:09] LABS: BASOPHILS % (AUTO) 0.8 % (0.0-2.0); CALCIUM, TOTAL 10.4 mg/dL (8.8-10.5); CREATININE 7.6 mg/dL (0.60-1.30); EOSINOPHILS % (AUTO) 0.7 % (1.0-6.0); HEMATOCRIT 37.5 % (41-53); HEMOGLOBIN 12.1 g/dL (13.5-17.5); LYMPHOCYTES # (AUTO) 1.6 K/uL (1.0-4.8); MEAN CORPUSCULAR HEMOGLOBIN 32.9 pg (26.0-34.0); MEAN CORPUSCULAR HGB CONC 32.2 G/dL (31.0-37.0); MEAN CORPUSCULAR VOLUME 102 fL (80-100); MONOCYTES # (AUTO) 0.8 K/uL (0.1-1.0); MONOCYTES % (AUTO) 10.4 % (2.0-9.0); NEUTROPHILS # (AUTO) 5.4 K/uL (1.8-7.7); NEUTROPHILS % (AUTO) 68.1 % (40.0-70.0); PLATELET COUNT (AUTO) 72 K/uL (150-450); POTASSIUM 5.8 mmol/L (3.5-5.1); RED BLOOD CELL COUNT(AUTO) 3.67 MIL/uL (4.50-5.90); RED CELL DISTRIBUTION WIDTH 19.3 % (11.5-14.5)
[2021-09-06] MEDS: HEPARIN SODIUM,PORCINE 5,000 UNITS/ML VIAL SQ SCH ×2 (08:00→15:18)
[2021-09-06 08:02] LABS: PLATELET MORPHOLOGY COMMENT GIANT PLTS PRESENT
[2021-09-06 08:07] VITALS: BP 115/55
[2021-09-06] MEDS: ALLOPURINOL 100 MG TABLET PO SCH (08:13)
[2021-09-06] MEDS: CARISOPRODOL 350 MG TABLET PO SCH ×2 (08:13→20:39)
[2021-09-06] MEDS: PANTOPRAZOLE SODIUM 40 MG DR TABLET PO SCH (08:14)
[2021-09-06] MEDS: DOCUSATE SODIUM 100 MG CAPSULE PO SCH ×2 (08:14→20:40)
[2021-09-06] MEDS: VITAMIN B COMPLEX/FOLIC ACID 1 TABLET PO SCH (08:14)
[2021-09-06] MEDS: SEVELAMER CARBONATE 800 MG TABLET PO SCH ×3 (08:14→17:31)
[2021-09-06] MEDS: METOPROLOL SUCCINATE 25 MG ER TABLET PO SCH ×2 (08:14→20:41)
[2021-09-06] MEDS: CALCIUM ACETATE 667 MG CAPSULE PO SCH ×3 (08:14→17:31)
[2021-09-06] MEDS: ASPIRIN 81 MG CHEWABLE TABLET PO SCH (08:16)
[2021-09-06] MEDS ORDERED: SODIUM CHLORIDE 0.9% 2,000 ML ONE (09:54)
[2021-09-06] MEDS: MIDODRINE HCL 5 MG TABLET PO PRN (10:47)
[2021-09-06 11:42] VITALS: BP 96/67
[2021-09-06] MEDS: AMIODARONE HCL 200 MG TABLET PO SCH ×2 (15:27→20:38)
[2021-09-06] MEDS ORDERED: LIDOCAINE/PF 1% 2 ML VIAL CAUDAL ONE (16:28)
[2021-09-06] MEDS: INSULIN LISPRO 100 UNITS/ML SQ PRN (17:56)
[2021-09-06 19:30] VITALS: BP 96/49
[2021-09-06] MEDS: ATORVASTATIN CALCIUM 20 MG TABLET PO SCH (20:38)
[2021-09-06] MEDS: INSULIN GLARGINE,HUM.REC.ANLOG 100 UNITS/ML SQ SCH (20:40)
[2021-09-06 23:45] VITALS: BP 99/64
[2021-09-07 00:56] LABS: GLUCOMETER DEV NAME(LOC) 5N.3; GLUCOSE,POINT OF CARE 141 MG/DL (70-110)
[2021-09-07 00:56] LABS: GLUCOMETER DEV NAME(LOC) 5N.3; GLUCOSE,POINT OF CARE 116 MG/DL (70-110)
[2021-09-07 00:56] LABS: GLUCOMETER DEV NAME(LOC) 5N.3; GLUCOSE,POINT OF CARE 142 MG/DL (70-110)
[2021-09-07 03:35] VITALS: BP 91/59
[2021-09-07] MEDS: HEPARIN SODIUM,PORCINE 5,000 UNITS/ML VIAL SQ SCH ×4 (08:00→23:29)
[2021-09-07] MEDS: ALLOPURINOL 100 MG TABLET PO SCH (08:20)
[2021-09-07] MEDS: CALCIUM ACETATE 667 MG CAPSULE PO SCH ×3 (08:20→18:11)
[2021-09-07] MEDS: CARISOPRODOL 350 MG TABLET PO SCH ×2 (08:20→21:34)
[2021-09-07] MEDS: AMIODARONE HCL 200 MG TABLET PO SCH ×3 (08:20→21:34)
[2021-09-07] MEDS: VITAMIN B COMPLEX/FOLIC ACID 1 TABLET PO SCH (08:20)
[2021-09-07] MEDS: MIDODRINE HCL 5 MG TABLET PO PRN (08:20)
[2021-09-07] MEDS: PANTOPRAZOLE SODIUM 40 MG DR TABLET PO SCH (08:20)
[2021-09-07] MEDS: SEVELAMER CARBONATE 800 MG TABLET PO SCH ×3 (08:20→18:11)
[2021-09-07 08:21] VITALS: BP 89/60
[2021-09-07] MEDS: METOPROLOL SUCCINATE 25 MG ER TABLET PO SCH ×2 (08:21→21:00)
[2021-09-07] MEDS: DOCUSATE SODIUM 100 MG CAPSULE PO SCH ×2 (08:21→21:00)
[2021-09-07] MEDS: ASPIRIN 81 MG CHEWABLE TABLET PO SCH (08:21)
[2021-09-07] MEDS: ACETAMINOPHEN 325 MG TABLET PO PRN (08:27)
[2021-09-07 11:12] VITALS: BP 96/69
[2021-09-07] MEDS: INSULIN LISPRO 100 UNITS/ML SQ PRN ×2 (12:25→18:11)
[2021-09-07 13:33] LABS: GLUCOMETER DEV NAME(LOC) 5N.3; GLUCOSE,POINT OF CARE 179 MG/DL (70-110)
[2021-09-07] MEDS ORDERED: LIDOCAINE/PF 1% 2 ML VIAL CAUDAL ONE (15:27)
[2021-09-07] MEDS ORDERED: MANNITOL 25%-12.5 GM/50 ML VIAL IVP ONE (15:27)
[2021-09-07 15:56] VITALS: BP 98/63
[2021-09-07] MEDS ORDERED: SODIUM CHLORIDE 0.9% 1,000 ML ONE (17:48)
[2021-09-07 19:02] LABS: CREATININE 7.21 mg/dL (0.60-1.30); POTASSIUM 4.4 mmol/L (3.5-5.1)
[2021-09-07 19:03] LABS: CALCIUM, TOTAL 9.5 mg/dL (8.8-10.5)
[2021-09-07 20:16] LABS: GLUCOMETER DEV NAME(LOC) 5S.1; GLUCOSE,POINT OF CARE 153 MG/DL (70-110)
[2021-09-07 20:17] LABS: GLUCOMETER DEV NAME(LOC) 5S.1; GLUCOSE,POINT OF CARE 140 MG/DL (70-110)
[2021-09-07] MEDS: ATORVASTATIN CALCIUM 20 MG TABLET PO SCH (21:34)
[2021-09-07] MEDS: INSULIN GLARGINE,HUM.REC.ANLOG 100 UNITS/ML SQ SCH (21:37)
[2021-09-07 23:15] VITALS: BP 134/61
[2021-09-08] VITALS (7 sets, daily range): BP systolic 92–126; BP diastolic 53–72
[2021-09-08] MEDS: HYDROCODONE/ACETAMINOPHEN 5-325 MG TABLET PO PRN ×2 (01:25→08:57)
[2021-09-08 06:02] LABS: CALCIUM, TOTAL 9.3 mg/dL (8.8-10.5); CREATININE 6.06 mg/dL (0.60-1.30); POTASSIUM 4.1 mmol/L (3.5-5.1)
[2021-09-08 06:06] LABS: GLUCOMETER DEV NAME(LOC) 5N.3; GLUCOSE,POINT OF CARE 111 MG/DL (70-110)
[2021-09-08] MEDS: INSULIN LISPRO 100 UNITS/ML SQ PRN ×4 (06:10→21:22)
[2021-09-08] MEDS: HEPARIN SODIUM,PORCINE 5,000 UNITS/ML VIAL SQ SCH ×3 (08:00→23:09)
[2021-09-08] MEDS: DOCUSATE SODIUM 100 MG CAPSULE PO SCH ×2 (08:44→21:19)
[2021-09-08] MEDS: ALLOPURINOL 100 MG TABLET PO SCH (08:44)
[2021-09-08] MEDS: PANTOPRAZOLE SODIUM 40 MG DR TABLET PO SCH (08:44)
[2021-09-08] MEDS: AMIODARONE HCL 200 MG TABLET PO SCH ×3 (08:44→21:00)
[2021-09-08] MEDS: SEVELAMER CARBONATE 800 MG TABLET PO SCH ×3 (08:45→17:29)
[2021-09-08] MEDS: CARISOPRODOL 350 MG TABLET PO SCH ×2 (08:46→21:19)
[2021-09-08] MEDS: CALCIUM ACETATE 667 MG CAPSULE PO SCH ×3 (08:46→17:29)
[2021-09-08] MEDS: METOPROLOL SUCCINATE 25 MG ER TABLET PO SCH ×2 (08:46→21:00)
[2021-09-08] MEDS: ASPIRIN 81 MG CHEWABLE TABLET PO SCH (08:47)
[2021-09-08] MEDS: VITAMIN B COMPLEX/FOLIC ACID 1 TABLET PO SCH (12:05)
[2021-09-08] MEDS ORDERED: LIDOCAINE/PF 1% 2 ML VIAL IM ONE (18:18)
[2021-09-08] MEDS ORDERED: ALBUMIN HUMAN 25%-12.5GM/50ML IV BOTTLE IV ONE (18:18)
[2021-09-08 20:12] LABS: GLUCOMETER DEV NAME(LOC) 5S.1; GLUCOSE,POINT OF CARE 169 MG/DL (70-110)
[2021-09-08 20:12] LABS: GLUCOMETER DEV NAME(LOC) 5S.1; GLUCOSE,POINT OF CARE 168 MG/DL (70-110)
[2021-09-08 20:14] LABS: GLUCOMETER DEV NAME(LOC) 5N.3; GLUCOSE,POINT OF CARE 187 MG/DL (70-110)
[2021-09-08] MEDS: ATORVASTATIN CALCIUM 20 MG TABLET PO SCH (21:19)
[2021-09-08] MEDS: INSULIN GLARGINE,HUM.REC.ANLOG 100 UNITS/ML SQ SCH (21:21)
[2021-09-08 21:41] LABS: GLUCOMETER DEV NAME(LOC) 5N.1C; GLUCOSE,POINT OF CARE 201 MG/DL (70-110)
[2021-09-09] MEDS: HYDROCODONE/ACETAMINOPHEN 5-325 MG TABLET PO PRN (00:49)
[2021-09-09 05:06] VITALS: BP 100/66
[2021-09-09] MEDS: INSULIN LISPRO 100 UNITS/ML SQ PRN ×2 (06:07→11:55)
[2021-09-09 07:02] LABS: CALCIUM, TOTAL 9.3 mg/dL (8.8-10.5); MAGNESIUM 2.4 mg/dL (1.80-2.40)
[2021-09-09 07:15] LABS: GLUCOMETER DEV NAME(LOC) 5N.1C; GLUCOSE,POINT OF CARE 147 MG/DL (70-110)
[2021-09-09 07:48] LABS: BASOPHILS % (AUTO) 0.4 % (0.0-2.0); EOSINOPHILS % (AUTO) 0.8 % (1.0-6.0); HEMATOCRIT 35.1 % (41-53); HEMOGLOBIN 11.2 g/dL (13.5-17.5); LYMPHOCYTES # (AUTO) 0.9 K/uL (1.0-4.8); LYMPHOCYTES % (AUTO) 13.7 % (22.0-44.0); MEAN CORPUSCULAR HEMOGLOBIN 32.4 pg (26.0-34.0); MEAN CORPUSCULAR HGB CONC 31.9 G/dL (31.0-37.0); MEAN CORPUSCULAR VOLUME 102 fL (80-100); MONOCYTES # (AUTO) 0.7 K/uL (0.1-1.0); MONOCYTES % (AUTO) 10.1 % (2.0-9.0); NEUTROPHILS # (AUTO) 5.1 K/uL (1.8-7.7); PLATELET COUNT (AUTO) 80 K/uL (150-450); RED BLOOD CELL COUNT(AUTO) 3.45 MIL/uL (4.50-5.90); RED CELL DISTRIBUTION WIDTH 18.4 % (11.5-14.5)
[2021-09-09 08:12] VITALS: BP 94/59
[2021-09-09] MEDS: CALCIUM ACETATE 667 MG CAPSULE PO SCH ×2 (08:19→11:55)
[2021-09-09] MEDS: PANTOPRAZOLE SODIUM 40 MG DR TABLET PO SCH (08:20)
[2021-09-09] MEDS: ALLOPURINOL 100 MG TABLET PO SCH (08:20)
[2021-09-09] MEDS: ASPIRIN 81 MG CHEWABLE TABLET PO SCH (08:20)
[2021-09-09] MEDS: SEVELAMER CARBONATE 800 MG TABLET PO SCH ×2 (08:20→11:55)
[2021-09-09] MEDS: VITAMIN B COMPLEX/FOLIC ACID 1 TABLET PO SCH (08:22)
[2021-09-09] MEDS: DOCUSATE SODIUM 100 MG CAPSULE PO SCH (08:23)
[2021-09-09] MEDS: HEPARIN SODIUM,PORCINE 5,000 UNITS/ML VIAL SQ SCH ×2 (08:24→16:00)
[2021-09-09] MEDS: CARISOPRODOL 350 MG TABLET PO SCH (09:00)
[2021-09-09] MEDS: AMIODARONE HCL 200 MG TABLET PO SCH ×2 (09:00→16:00)
[2021-09-09] MEDS: METOPROLOL SUCCINATE 25 MG ER TABLET PO SCH (09:00)
[2021-09-09 12:33] VITALS: BP 100/60
[2021-09-09] MEDS ORDERED: AMIO200T68 PO (14:10)
[2021-09-09] MEDS ORDERED: INSLAN SQ (14:11)
[2021-09-09] MEDS ORDERED: SODIUM CHLORIDE 0.9% 2,000 ML ONE (14:28)
[2021-09-09 16:44] LABS: GLUCOMETER DEV NAME(LOC) 5N.1C; GLUCOSE,POINT OF CARE 186 MG/DL (70-110)
[2021-09-09 17:32] VITALS: BP 153/88
[2021-09-09] MEDS ORDERED: MANNITOL 25%-12.5 GM/50 ML VIAL IVP ONE (18:17)
== END 2021-09-09 18:18 | disposition home or self-care (01) | DRG 194 ==
LOC: EMS 03:25 → 5N 18:30 → 5S 09-08 16:50
PROVIDERS: ADMIT Internal Medicine; ATTEND Internal Medicine
PROC: 5A1D70Z Performance of Urinary Filtration, Intermittent, Less than 6 Hours Per Day (ICD-10-PCS; principal; 2021-09-04)
PROC: 5A1D70Z Performance of Urinary Filtration, Intermittent, Less than 6 Hours Per Day (ICD-10-PCS; 2021-09-05)
PROC: 5A1D70Z Performance of Urinary Filtration, Intermittent, Less than 6 Hours Per Day (ICD-10-PCS; 2021-09-06)
PROC: 5A1D70Z Performance of Urinary Filtration, Intermittent, Less than 6 Hours Per Day (ICD-10-PCS; 2021-09-07)
PROC: 5A1D70Z Performance of Urinary Filtration, Intermittent, Less than 6 Hours Per Day (ICD-10-PCS; 2021-09-09)
DX: I13.2 Hypertensive heart and chronic kidney disease with heart failure and with stage 5 chronic kidney disease, or end stage renal disease (principal); N18.6 End stage renal disease; D63.1 Anemia in chronic kidney disease; I42.9 Cardiomyopathy, unspecified; I48.92 Unspecified atrial flutter; I48.91 Unspecified atrial fibrillation; E11.22 Type 2 diabetes mellitus with diabetic chronic kidney disease; I50.43 Acute on chronic combined systolic (congestive) and diastolic (congestive) heart failure; B18.2 Chronic viral hepatitis C; E78.5 Hyperlipidemia, unspecified; I08.1 Rheumatic disorders of both mitral and tricuspid valves; J44.9 Chronic obstructive pulmonary disease, unspecified; Z20.822 Contact with and (suspected) exposure to COVID-19; K74.60 Unspecified cirrhosis of liver; Z79.82 Long term (current) use of aspirin; Z86.718 Personal history of other venous thrombosis and embolism; Z87.891 Personal history of nicotine dependence; Z91.15 Patient's noncompliance with renal dialysis; Z91.19 Patient's noncompliance with other medical treatment and regimen; Z99.2 Dependence on renal dialysis; Z79.4 Long term (current) use of insulin; Z79.899 Other long term (current) drug therapy
CPT/HCPCS: 71045; 71275; 80048; 80053; 82550; 82962; 83036; 83735; 83880; 84100; 84484; 85025; 85379; 85610; 85730; 87081; 87340; 90935; 93005; 99285; J0282; J1200; J1644; J1815; J2060; J2150; J2270; J3490; J7030; J7050; J7060; P9047; Q9967; 36415-L1; 36415-TC; U0003